=== PATIENT | female | born 1945 | race Caucasian/White ===

== ENCOUNTER → 2017-07-27 | Outpatient (CLI) | payer OTHER ==
[~2017-07-27] MED LIST: ACET325T96 PO; CHOLTAB3 PO; CITA40TA12 PO; DIPH25CA65 PO; LORA10TA5 PO; MULT-506 PO; NXM/40 PO; OMEG10007 PO; SIMV20TA2 PO; SYN25 PO
[2017-07-27 16:49] LABS: URINE APPEARANCE CLEAR (CLEAR); URINE BILIRUBIN NEG (NEG); URINE COLOR YELLOW; URINE EPITHELIAL CELL AUTO >30 /lpf (0-5); URINE NITRITE NEG (NEG); URINE PH 5.5 (4.5-7.5); URINE SPECIFIC GRAVITY 1.017 (1.000-1.030); UROBILINOGEN NEG (NEG)
[2017-07-27 16:49] LABS: BASO % 0.7 %; BASO ABS # 0.05 K/uL (0-0.2); COMPLETE YES; EOS % 6.1 %; IG% 0.1 %; LYMPH % 27.5 %; LYMPH ABS # 1.99 K/uL (1.2-3.4); MEAN CELL VOLUME 99.3 fL (80-100); MEAN CORPUSCULAR HGB CONC 34.3 g/dl (32-36); MEAN PLATELET VOLUME 12.2 fL (7.4-10.4); MONO % 7.1 %; NEUT % 58.5 %; PLATELET COUNT 221 K/uL (130-400); RED BLOOD COUNT 4.03 M/uL (4.2-5.4); WHITE BLOOD COUNT 7.23 K/uL (4.8-10.8)
[2017-07-27 16:56] LABS: MANUAL MICROSCOPIC REQUIRED? NO; REVIEW REQ? NO
[2017-07-27 16:59] LABS: ALT/SGPT 12 U/L (12-78); BLOOD UREA NITROGEN 17 mg/dl (7-18); CALCIUM 9.8 mg/dl (8.5-10.1); CARBON DIOXIDE 26 mmol/L (21-32); CHLORIDE 102 mmol/L (98-107); CHOLESTEROL 236 mg/dl (0-200); GLUCOSE 115 mg/dl (70-99); POTASSIUM 3.9 mmol/L (3.5-5.1); SODIUM 135 mmol/L (136-145)
[2017-07-27 17:08] LABS: ALKALINE PHOSPHATASE 105 U/L (45-117); AST/SGOT 24 U/L (15-37); CHOLESTEROL/HDL RATIO 4.9; HDL CHOLESTEROL 48 mg/dl; LDL CHOLESTEROL CALCULATED 160 mg/dl; TRIGLYCERIDES 140 mg/dl (0-150); VERY LOW DENSITY LIPOPROT CALC 28 mg/dl
[2017-07-27 17:26] LABS: LYME DISEASE AB IGG NEG (NEG); LYME DISEASE AB IGM NEG (NEG)
== END | disposition home or self-care (01) ==
LOC: C.LABBFT 12:00
PROVIDERS: ATTEND Physician Assistant Medical
DX: R41.3 Other amnesia (principal)

== ENCOUNTER → 2017-08-08 | Outpatient (CLI) | payer OTHER ==
[2017-08-08 17:37] LABS: URINE APPEARANCE CLEAR (CLEAR); URINE BILIRUBIN NEG (NEG); URINE COLOR YELLOW; URINE EPITHELIAL CELL AUTO >30 /lpf (0-5); URINE NITRITE NEG (NEG); URINE SPECIFIC GRAVITY 1.013 (1.000-1.030); UROBILINOGEN NEG (NEG)
[2017-08-08 17:54] LABS: MANUAL MICROSCOPIC REQUIRED? NO; REVIEW REQ? NO
== END | disposition home or self-care (01) ==
LOC: C.LABBFT 12:07
PROVIDERS: ATTEND Physician Assistant Medical
DX: N39.0 Urinary tract infection, site not specified (principal)

== ENCOUNTER → 2017-08-14 | Outpatient (CLI) | payer OTHER ==
--- NOTE | 2017-08-14 17:05 | DIAGNOSTIC IMAGING REPORT ---
MRI OF THE BRAIN WITHOUT CONTRAST CLINICAL HISTORY: MEMORY LOSS HEADACHES, DIZZINESS. COMPARISON STUDY: Noncontrast head CT dated 08/27/2015 FINDINGS: Sagittal T1, axial diffusion, proton density and T2 weighted axial, coronal FLAIR, and axial T1-weighted images were acquired. No intra or extra-axial mass lesions are visualized Axial diffusion-weighted images reveal no evidence of acute or subacute infarction. There is no evidence of ventricular dilatation. Proton density T2-weighted and FLAIR images reveal minimal foci of increased T2 signal within the white matter, likely on a small vessel basis. There are no abnormal flow voids. There are foci of increased T2 signal within the right mastoid, likely inflammatory. There is a partially empty sella. IMPRESSION: 1. Right mastoid effusion 2. No acute intracranial findings. Electronically signed by: Servando Eaton M.D. 08/14/2017 5:04 PM Dictated Date/Time: 08/14/2017 5:01 PM
--- NOTE | 2017-08-14 17:12 | DIAGNOSTIC IMAGING REPORT ---
ULTRASOUND OF THE CAROTID ARTERIES CLINICAL HISTORY: I25.10 Arteriosclerotic cardiovascular [id number] Memory lossI COMPARISON STUDY: 08/28/2015 TECHNIQUE: Real-time, grayscale, and color Doppler sonography of the carotid arteries was performed. Imaging reviewed in the transverse and longitudinal planes. NASCET criteria was utilized for stenosis calcification. FINDINGS: There is mild atherosclerotic plaque present . The peak systolic velocity within the right internal carotid artery is 63 cm/sec. The systolic velocity ratio of right internal to common carotid artery is 1.2. The peak systolic velocity within the left internal carotid artery is 63 cm/sec. The systolic velocity ratio left internal to common carotid artery is 1.0. Antegrade flow is seen in the vertebral arteries. The external carotid arteries are patent. Blood pressure in the right arm measured 198 mm/Hg. Blood pressure in the left arm measured 197 mm/Hg. IMPRESSION: 1. No evidence of hemodynamically significant carotid stenosis 2. Systemic hypertension Electronically signed by: Servando Eaton M.D. 08/14/2017 5:10 PM Dictated Date/Time: 08/14/2017 3:28 PM
== END | disposition home or self-care (01) ==
LOC: C.ULTR 14:04
PROVIDERS: ATTEND Internal Medicine
DX: R41.3 Other amnesia (principal); I25.10 Atherosclerotic heart disease of native coronary artery without angina pectoris; I65.29 Occlusion and stenosis of unspecified carotid artery

== ENCOUNTER → 2017-09-11 | Outpatient (CLI) | payer OTHER ==
[2017-09-11 18:11] LABS: BLOOD UREA NITROGEN 16 mg/dl (7-18); BUN/CREATININE RATIO 10.6 (10-20); CALCIUM 9.3 mg/dl (8.5-10.1); CARBON DIOXIDE 26 mmol/L (21-32); CHLORIDE 102 mmol/L (98-107); CREATININE 1.51 mg/dl (0.60-1.20); GLUCOSE 100 mg/dl (70-99); POTASSIUM 4.8 mmol/L (3.5-5.1); SODIUM 133 mmol/L (136-145)
[2017-09-12 06:38] LABS: ESTIMATED AVERAGE GLUCOSE 111 mg/dl; HA1C FLAG Normal (Normal)
== END | disposition home or self-care (01) ==
LOC: C.LABBFT 12:23
PROVIDERS: ATTEND Physician Assistant Medical
DX: I10 Essential (primary) hypertension (principal); R73.01 Impaired fasting glucose

== ENCOUNTER → 2017-12-18 | Outpatient (CLI) | payer OTHER ==
[~2017-12-18] MED LIST changes: +CEPH-571 PO; +LEVO50TA6 PO; -LORA10TA5 PO; +LORA10TA6 PO; +METO-217 PO; +PANT40TA2 PO
[2017-12-18 17:45] LABS: ALBUMIN 3.6 gm/dl (3.4-5.0); ALT/SGPT 20 U/L (12-78); BLOOD UREA NITROGEN 20 mg/dl (7-18); CALCIUM 9.3 mg/dl (8.5-10.1); CARBON DIOXIDE 25 mmol/L (21-32); CHOLESTEROL 180 mg/dl (0-200); GLUCOSE 100 mg/dl (70-99); POTASSIUM 4.8 mmol/L (3.5-5.1); SODIUM 135 mmol/L (136-145)
[2017-12-18 17:53] LABS: ALKALINE PHOSPHATASE 88 U/L (45-117); AST/SGOT 30 U/L (15-37); LDL CHOLESTEROL CALCULATED 109 mg/dl; TOTAL PROTEIN 7.5 gm/dl (6.4-8.2)
== END | disposition home or self-care (01) ==
LOC: C.LABBFT 13:23
PROVIDERS: ATTEND Physician Assistant Medical
DX: I10 Essential (primary) hypertension (principal); E03.9 Hypothyroidism, unspecified; E78.5 Hyperlipidemia, unspecified

== ENCOUNTER 2017-12-20 14:23 | Emergency (ER) | payer OTHER ==
[~2017-12-20] VITALS: Ht 170.2 cm; Wt 92.9 kg
[~2017-12-20 14:23] MED LIST changes: -CEPH-571 PO; -LEVO50TA6 PO; -METO-217 PO; -PANT40TA2 PO
[2017-12-20 14:36] VITALS: TEMP 36.4; Ht 170.2 cm; Wt 92.9 kg
[2017-12-20] MEDS ORDERED: PANT40TA2 PO (15:08)
[2017-12-20] MEDS ORDERED: LEVO50TA6 PO (15:08)
[2017-12-20] MEDS ORDERED: METO-217 PO (15:08)
--- NOTE | 2017-12-20 15:53 | EMERGENCY ROOM VISIT NOTE ---
History First contact with patient: 14:44 Chief Complaint: SYNCOPE Stated Complaint: SYNCOPE Nursing Triage Summary: pt had a syncopal event at 1400 at the local [facility] second one at [facility] pt has no complaints at this time History of Present Illness The patient is a 72 year old female with history of CAD, HTN on Metoprolol, hypothyroidism, who presents to the Emergency Room with complaints of syncopal episode. She reports walking down the aisle in [facility] approximately 30-45 minutes prior to arrival, she felt sensation of dizziness, lightheadedness and reports brief loss of consciousness. She denies falling because her family caught her and prevented fall. She denies preceding chest pain, sob, fevers, chills, n/v, diarrhea, abdominal pain. She reports she had similar syncopal episode in Aug 2015 after walking around in [facility]. She was admitted, symptoms were attributed to orthostatic hypotension. Etiology was unclear. She was placed on Florinef at discharge. She is no longer on this medication. Review of Systems Pt denies headache, change in vision, fevers, chest pain, shortness of breath, nausea, vomiting, diarrhea, pain with urination, and melena. Past Medical/Surgical History Medical Problems: (1) CORONARY ATHEROSCLEROSIS OF [place] CORONARY VESSEL (2) DIVERTICULOSIS COLON (W/O MENT OF HEMORRHAGE) (3) HYPERLIPIDEMIA NEC/NOS (4) HYPERTENSION NOS (5) MIGRAINE UNSPECIFIED W/O INTRACTABLE MIGRAINE (6) SPINAL STENOSIS-LUMBAR Family History Cardiovascular disease FH: cancer FH: heart disease Social History Smoking Status: Never Smoker Alcohol Use: none Marital Status: Occupation Status: employed Current/Historical Medications Scheduled Cephalexin (Keflex), 1 CAP PO BID Esomeprazole Magnesium (Nexium), 40 MG PO DAILY Fish Oil ([place]-3), 1 CAP PO 1-2XD Levothyroxine Sodium (Levothyroxine Sodium), 50 MCG PO QAM Metoprolol Succinate (Toprol Xl), 50 MG PO QAM Multivitamin (Multivitamin), 1 TAB PO DAILY Pantoprazole (Pantoprazole Sodium), 40 MG PO DAILY Simvastatin (Zocor), 20 MG PO DAILY Scheduled PRN Acetaminophen Tab (Tylenol), 325 MG PO for Pain Physical Exam Vital Signs Date Time Temp Pulse Resp B/P (MAP) Pulse Ox O2 Delivery O2 Flow Rate FiO2 12/20/17 18:45 68 16 99 12/20/17 16:46 63 18 168/85 99 Room Air 12/20/17 16:33 63 16 168/85 99 Room Air 75 147/76 76 139/80 12/20/17 15:19 62 16 137/74 98 Room Air 12/20/17 15:00 60 12/20/17 14:36 36.4 67 18 166/85 98 Room Air Physical Exam GENERAL: alert, no distress, EYE EXAM: normal conjunctiva, PERRL and EOM's grossly intact OROPHARYNX: no exudate, no erythema, lips, buccal mucosa, and tongue normal and mucous membranes are moist NECK: supple, no adenopathy, non-tender LUNGS: Clear to auscultation. Normal chest wall mechanics HEART: no murmurs, S1 normal and S2 normal ABDOMEN: abdomen soft, non-tender, normo-active bowel sounds, no masses, no rebound or guarding. BACK: Back is symmetrical on inspection and there is no deformity UPPER EXTREMITIES: upper extremities are grossly normal. LOWER EXTREMITIES: No pitting edema. NEURO EXAM: AOx3, cranial nerves II-XII intact, normal speech, no gross weakness of arms, no gross weakness of legs. Medical Decision & Procedures Laboratory Results 12/20/17 15:35 Red Blood Count 3.87, Mean Corpuscular Volume 97.9, Mean Corpuscular Hemoglobin 33.9, Mean Corpuscular Hemoglobin Concent 34.6, Mean Platelet Volume 11.2, Neutrophils (%) (Auto) 69.0, Lymphocytes (%) (Auto) 17.7, Monocytes (%) (Auto) 6.8, Eosinophils (%) (Auto) 5.9, Basophils (%) (Auto) 0.4, Neutrophils # (Auto) 3.87, Lymphocytes # (Auto) 0.99, Monocytes # (Auto) 0.38, Eosinophils # (Auto) 0.33, Basophils # (Auto) 0.02 12/20/17 15:35 Test 12/20/17 15:33 12/20/17 15:35 12/20/17 18:05 12/20/17 18:15 Free Thyroxine 1.49 ng/dl (0.80-1.60) White Blood Count 5.60 K/uL (4.8-10.8) Red Blood Count 3.87 M/uL (4.2-5.4) Hemoglobin 13.1 g/dL (12.0-16.0) Hematocrit 37.9 % (37-47) Mean Corpuscular Volume 97.9 fL (80-100) Mean Corpuscular Hemoglobin 33.9 pg (25-34) Mean Corpuscular Hemoglobin Concent 34.6 g/dl (32-36) Platelet Count 153 K/uL (130-400) Mean Platelet Volume 11.2 fL (7.4-10.4) Neutrophils (%) (Auto) 69.0 % Lymphocytes (%) (Auto) 17.7 % Monocytes (%) (Auto) 6.8 % Eosinophils (%) (Auto) 5.9 % Basophils (%) (Auto) 0.4 % Neutrophils # (Auto) 3.87 K/uL (1.4-6.5) Lymphocytes # (Auto) 0.99 K/uL (1.2-3.4) Monocytes # (Auto) 0.38 K/uL (0.11-0.59) Eosinophils # (Auto) 0.33 K/uL (0-0.5) Basophils # (Auto) 0.02 K/uL (0-0.2) RDW Standard Deviation 44.1 fL (36.4-46.3) RDW Coefficient of Variation 12.4 % (11.5-14.5) Immature Granulocyte % (Auto) 0.2 % Immature Granulocyte # (Auto) 0.01 K/uL (0.00-0.02) Anion Gap 8.0 mmol/L (3-11) Est Creatinine Clear Calc Drug Dose 37.0 ml/min Estimated GFR () 37.5 Estimated GFR (Non- 32.4 BUN/Creatinine Ratio 11.5 (10-20) Calcium Level 9.2 mg/dl (8.5-10.1) Magnesium Level 2.1 mg/dl (1.8-2.4) Total Bilirubin 0.5 mg/dl (0.2-1) Aspartate Amino Transf (AST/SGOT) 26 U/L (15-37) Alanine Aminotransferase (ALT/SGPT) 19 U/L (12-78) Alkaline Phosphatase 85 U/L (45-117) Troponin I < 0.015 ng/ml (0-0.045) Total Protein 7.1 gm/dl (6.4-8.2) Albumin 3.3 gm/dl (3.4-5.0) Globulin 3.8 gm/dl (2.5-4.0) Albumin/Globulin Ratio 0.9 (0.9-2) Thyroid Stimulating Hormone (TSH) 20.400 uIu/ml (0.300-4.500) Free Triiodothyronine 2.24 pg/ml (2.30-4.20) Urine Color YELLOW Urine Appearance CLOUDY (CLEAR) Urine pH 5.5 (4.5-7.5) Urine Specific [place] 1.011 (1.000-1.030) Urine Protein NEG (NEG) Urine Glucose (UA) NEG (NEG) Urine Ketones NEG (NEG) Urine Occult Blood NEG (NEG) Urine Nitrite POS (NEG) Urine Bilirubin NEG (NEG) Urine Urobilinogen NEG (NEG) Urine Leukocyte Esterase SMALL (NEG) Urine WBC (Auto) 10-30 /hpf (0-5) Urine RBC (Auto) 0-4 /hpf (0-4) Urine Hyaline Casts (Auto) 1-5 /lpf (0-5) Urine Epithelial Cells (Auto) >30 /lpf (0-5) Urine Bacteria (Auto) 2+ (NEG) Influenza Type A Antigen Neg for Influ A (NEG) Influenza Type B Antigen Neg for Influ B (NEG) Medications Administered Medications (Trade) Dose Ordered Sig/Alessio Route Start Time Stop Time Status Last Admin Dose Admin Sodium Chloride 1,000 ml @ 999 mls/hr Q1H1M IV 12/20/17 19:15 01/19/18 19:14 12/20/17 19:10 999 MLS/HR Medical Decision 72 year old female with history of Orthostatic hypotension, CAD, HTN on Metoprolol, previous syncopal episode in 2014 presenting with syncopal episode. Vital signs positive for Orthostasis CBC: unremarkable CMP: Cr 1.56 from ( Baseline 1.5- 1.9) Otherwise unremarkable TSH: 20.4 ( up from .075 in 03/02) Free T3: 2.24 Free T4 1.49 UA: Nitrite positive, Trace leukocyte esterase, 2+ bacteria CXR: unremarkable Given 1L NS Bolus Given 500 mg PO Keflex Given history of Orthostatic Hypotension and previous syncopal episode, in addition to positive orthostatic vitals signs on this encounter, syncopal episode very likely secondary to this. Additionally given UA consistent with UTI, dehydration in the setting of UTI may have been a significant contributor. Upon reevaluation, the patient is asymptomatic, comfortable. I discussed the findings and the treatment plan with the patient. Patient and family expresses agreement and understanding. She was discharged on 1 week of Keflex 500 mg BID with follow up to PCP and scheduled appt with Dr. Toledo (Neurology). Impression Primary Impression: Syncope Additional Impression: UTI (urinary tract infection) Departure Information Dispostion Home / Self-Care Condition GOOD Prescriptions Cephalexin (KEFLEX) 500 Mg Cap 1 CAP PO BID for 7 Days, #14 CAP Prov: Michael Hemphill .MD 12/20/17 Referrals Jose Angel Montes De Oca M.D. (PCP) Patient Instructions ED UTI Cystitis Female, [facility] Additional Instructions You presented to Emergency Department with a syncopal episode and were found to have a Urinary Tract infection. You will be placed on an antibiotic ( Keflex) for 7 days. Please take as prescribed. Please maintain hydration because dehydration can be contributor your syncope. If you experience increasing pain with urination, blood in urine, back or side pain please call your clinic doctor or if concerned , return to Emergency Dept. If you have recurrent syncopal episodes, Chest pain, please return to Emergency Dept. Please follow up with Primary care doctor within 1 week. Please follow up with Dr. Toledo. Resident Tracking Resident Involvement: Resident Care Provided Care Provided: Adult ED Problem Qualifiers
[2017-12-20 16:01] LABS: BASO % 0.4 %; BASO ABS # 0.02 K/uL (0-0.2); EOS % 5.9 %; EOS ABS # 0.33 K/uL (0-0.5); HEMATOCRIT 37.9 % (37-47); HEMOGLOBIN 13.1 g/dL (12.0-16.0); IG# 0.01 K/uL (0.00-0.02); LYMPH % 17.7 %; LYMPH ABS # 0.99 K/uL (1.2-3.4); MEAN CELL VOLUME 97.9 fL (80-100); MEAN CORPUSCULAR HEMOGLOBIN 33.9 pg (25-34); MEAN CORPUSCULAR HGB CONC 34.6 g/dl (32-36); MEAN PLATELET VOLUME 11.2 fL (7.4-10.4); MONO % 6.8 %; MONO ABS # 0.38 K/uL (0.11-0.59); NEUT ABS # 3.87 K/uL (1.4-6.5); PLATELET COUNT 153 K/uL (130-400); RED CELL DISTRIBUTION WIDTH CV 12.4 % (11.5-14.5); RED CELL DISTRIBUTION WIDTH SD 44.1 fL (36.4-46.3)
[2017-12-20 16:26] LABS: ALBUMIN 3.3 gm/dl (3.4-5.0); CALCIUM 9.2 mg/dl (8.5-10.1); CREATININE 1.56 mg/dl (0.60-1.20); POTASSIUM 4.4 mmol/L (3.5-5.1)
[2017-12-20 16:29] LABS: TOTAL PROTEIN 7.1 gm/dl (6.4-8.2)
--- NOTE | 2017-12-20 16:55 | DIAGNOSTIC IMAGING REPORT ---
CHEST 2 VIEWS ROUTINE CLINICAL HISTORY: Syncope. COMPARISON STUDY: Chest radiograph September 06, 2015. FINDINGS: Cervical spine fusion is incidentally noted. Lung volumes are normal. There is no pneumothorax or pleural effusion. There is no evidence for pulmonary edema. There is no consolidation to suggest pneumonia. Cardiomediastinal silhouette is stable. IMPRESSION: No acute cardiopulmonary findings. No change in appearance of the chest. Electronically signed by: Charly Seth M.D. 12/20/2017 4:53 PM Dictated Date/Time: 12/20/2017 4:52 PM
--- NOTE | 2017-12-20 17:29 | EMERGENCY ROOM VISIT NOTE ---
History Report prepared by Elva: Anish Frost Under the Supervision of: Dr. Tonio Charles M.D. First contact with patient: 14:44 Chief Complaint: SYNCOPE Stated Complaint: SYNCOPE Nursing Triage Summary: pt had a syncopal event at 1400 at the local [facility] second one at [facility] pt has no complaints at this time History of Present Illness The patient is a 72 year old female who presents to the Emergency Room following a syncopal episode that occurred just prior to arrival. The patient states that she was pushing her shopping cart through [place] with her son today when she became dizzy, light headed, and warm. She expressed these symptoms to her son, and then sat down on the corner of an "island display" in a shopping isle. The son notes that he told her to lift her arms up so he could help her take off her jacket, she did not respond and kept her head down. The son notes that she then went unconscious and slid to the floor. He helped her to the floor from the seated position and she did not impact the ground in anyway. The son notes that she was unconscious for about 5 minutes and she did lose continence of her bladder. The patient notes that when she woke up she was completely aware of her surroundings. There was no post ictal confusion. She denies any chest pain, shortness of breath, palpitations, or weakness preceding the episode. She did have one episode od diarrhea yesterday, but she is sure that this was the result of eating a jar of pears. The patient did have a similar incident in 2015 and was diagnosed with Orthostatic Hypertension. Source of History: patient, family Onset: Shortly REFLEXOLOGIST Position: other (Neuro) Quality: other (Syncopal Episode) Associated Symptoms: + LOC, No chest pain, No SOB Review of Systems See HPI for pertinent positives and negatives. A total of ten systems were reviewed and were otherwise negative. Past Medical & Surgical Medical Problems: (1) CORONARY ATHEROSCLEROSIS OF [place] CORONARY VESSEL (2) DIVERTICULOSIS COLON (W/O MENT OF HEMORRHAGE) (3) HYPERLIPIDEMIA NEC/NOS (4) HYPERTENSION NOS (5) MIGRAINE UNSPECIFIED W/O INTRACTABLE MIGRAINE (6) SPINAL STENOSIS-LUMBAR Family History Cardiovascular disease FH: cancer FH: heart disease Social History Smoking Status: Never Smoker Alcohol Use: none Marital Status: Occupation Status: employed Current/Historical Medications Scheduled Cephalexin (Keflex), 1 CAP PO BID Esomeprazole Magnesium (Nexium), 40 MG PO DAILY Fish Oil ([place]-3), 1 CAP PO 1-2XD Levothyroxine Sodium (Levothyroxine Sodium), 50 MCG PO QAM Metoprolol Succinate (Toprol Xl), 50 MG PO QAM Multivitamin (Multivitamin), 1 TAB PO DAILY Pantoprazole (Pantoprazole Sodium), 40 MG PO DAILY Simvastatin (Zocor), 20 MG PO DAILY Scheduled PRN Acetaminophen Tab (Tylenol), 325 MG PO for Pain Allergies Coded Allergies: Furosemide (Verified Allergy, Severe, ICHING, BODY PAIN, 12/20/17) Potassium (Verified Allergy, Mild, BLACKS OUT, 12/20/17) Resveratrol (Verified Allergy, Mild, PASSES OUT, 08/27/15) Camphor (Verified Allergy, Unknown, Muscle weakness and spacing of words with speech., 08/27/15) Celecoxib (Verified Allergy, Unknown, 08/27/15) Rofecoxib (Verified Allergy, Unknown, 08/27/15) Sulfa Antibiotics (Verified Allergy, Unknown, UNKNOWN, 12/20/17) Venlafaxine (Verified Allergy, Unknown, 12/20/17) Uncoded Allergies: RESVINATROL COMPLETE (Allergy, Unknown, Swelling throat/tongue.Difficulty breathing.Spacing of words, 08/01/11) Physical Exam Vital Signs Date Time Temp Pulse Resp B/P (MAP) Pulse Ox O2 Delivery O2 Flow Rate FiO2 12/20/17 20:11 64 19 172/90 99 12/20/17 18:45 68 16 99 12/20/17 16:46 63 18 168/85 99 Room Air 12/20/17 16:33 63 16 168/85 99 Room Air 75 147/76 76 139/80 12/20/17 15:19 62 16 137/74 98 Room Air 12/20/17 15:00 60 12/20/17 14:36 36.4 67 18 166/85 98 Room Air Physical Exam GENERAL: Awake, alert, fatigued-appearing, in no distress HENT: Normocephalic, atraumatic. Patient has dry and cracked mucous membranes. EYES: Normal conjunctiva. Sclera non-icteric. NECK: Supple. No nuchal rigidity. FROM. No JVD. RESPIRATORY: Clear to auscultation. CARDIAC: Regular rate, normal rhythm. Extremities warm and well perfused. Pulses equal. ABDOMEN: Soft, non-distended. No tenderness to palpation. No rebound or guarding. No masses. RECTAL: Deferred. MUSCULOSKELETAL: Chest examination reveals no tenderness. The back is symmetrical on inspection without obvious abnormality. There is no CVA tenderness to palpation. No joint edema. LOWER EXTREMITIES: Calves are equal size bilaterally and non-tender. 1+ lower extremity edema. No discoloration. NEURO: Normal sensorium. No sensory or motor deficits noted. SKIN: No rash or jaundice noted. Medical Decision & Procedures ER Provider Diagnostic Interpretation: Radiology results as stated below per my review and radiologist interpretation: CHEST 2 VIEWS ROUTINE CLINICAL HISTORY: Syncope. COMPARISON STUDY: Chest radiograph September 06, 2015. FINDINGS: Cervical spine fusion is incidentally noted. Lung volumes are normal. There is no pneumothorax or pleural effusion. There is no evidence for pulmonary edema. There is no consolidation to suggest pneumonia. Cardiomediastinal silhouette is stable. IMPRESSION: No acute cardiopulmonary findings. No change in appearance of the chest. Electronically signed by: Charly Seth M.D. 12/20/2017 4:53 PM Dictated Date/Time: 12/20/2017 4:52 PM Laboratory Results 12/20/17 15:35 Red Blood Count 3.87, Mean Corpuscular Volume 97.9, Mean Corpuscular Hemoglobin 33.9, Mean Corpuscular Hemoglobin Concent 34.6, Mean Platelet Volume 11.2, Neutrophils (%) (Auto) 69.0, Lymphocytes (%) (Auto) 17.7, Monocytes (%) (Auto) 6.8, Eosinophils (%) (Auto) 5.9, Basophils (%) (Auto) 0.4, Neutrophils # (Auto) 3.87, Lymphocytes # (Auto) 0.99, Monocytes # (Auto) 0.38, Eosinophils # (Auto) 0.33, Basophils # (Auto) 0.02 12/20/17 15:35 Test 12/20/17 15:33 12/20/17 15:35 12/20/17 18:05 12/20/17 18:15 Free Thyroxine 1.49 ng/dl (0.80-1.60) White Blood Count 5.60 K/uL (4.8-10.8) Red Blood Count 3.87 M/uL (4.2-5.4) Hemoglobin 13.1 g/dL (12.0-16.0) Hematocrit 37.9 % (37-47) Mean Corpuscular Volume 97.9 fL (80-100) Mean Corpuscular Hemoglobin 33.9 pg (25-34) Mean Corpuscular Hemoglobin Concent 34.6 g/dl (32-36) Platelet Count 153 K/uL (130-400) Mean Platelet Volume 11.2 fL (7.4-10.4) Neutrophils (%) (Auto) 69.0 % Lymphocytes (%) (Auto) 17.7 % Monocytes (%) (Auto) 6.8 % Eosinophils (%) (Auto) 5.9 % Basophils (%) (Auto) 0.4 % Neutrophils # (Auto) 3.87 K/uL (1.4-6.5) Lymphocytes # (Auto) 0.99 K/uL (1.2-3.4) Monocytes # (Auto) 0.38 K/uL (0.11-0.59) Eosinophils # (Auto) 0.33 K/uL (0-0.5) Basophils # (Auto) 0.02 K/uL (0-0.2) RDW Standard Deviation 44.1 fL (36.4-46.3) RDW Coefficient of Variation 12.4 % (11.5-14.5) Immature Granulocyte % (Auto) 0.2 % Immature Granulocyte # (Auto) 0.01 K/uL (0.00-0.02) Anion Gap 8.0 mmol/L (3-11) Est Creatinine Clear Calc Drug Dose 37.0 ml/min Estimated GFR () 37.5 Estimated GFR (Non- 32.4 BUN/Creatinine Ratio 11.5 (10-20) Calcium Level 9.2 mg/dl (8.5-10.1) Magnesium Level 2.1 mg/dl (1.8-2.4) Total Bilirubin 0.5 mg/dl (0.2-1) Aspartate Amino Transf (AST/SGOT) 26 U/L (15-37) Alanine Aminotransferase (ALT/SGPT) 19 U/L (12-78) Alkaline Phosphatase 85 U/L (45-117) Troponin I < 0.015 ng/ml (0-0.045) Total Protein 7.1 gm/dl (6.4-8.2) Albumin 3.3 gm/dl (3.4-5.0) Globulin 3.8 gm/dl (2.5-4.0) Albumin/Globulin Ratio 0.9 (0.9-2) Thyroid Stimulating Hormone (TSH) 20.400 uIu/ml (0.300-4.500) Free Triiodothyronine 2.24 pg/ml (2.30-4.20) Urine Color YELLOW Urine Appearance CLOUDY (CLEAR) Urine pH 5.5 (4.5-7.5) Urine Specific [place] 1.011 (1.000-1.030) Urine Protein NEG (NEG) Urine Glucose (UA) NEG (NEG) Urine Ketones NEG (NEG) Urine Occult Blood NEG (NEG) Urine Nitrite POS (NEG) Urine Bilirubin NEG (NEG) Urine Urobilinogen NEG (NEG) Urine Leukocyte Esterase SMALL (NEG) Urine WBC (Auto) 10-30 /hpf (0-5) Urine RBC (Auto) 0-4 /hpf (0-4) Urine Hyaline Casts (Auto) 1-5 /lpf (0-5) Urine Epithelial Cells (Auto) >30 /lpf (0-5) Urine Bacteria (Auto) 2+ (NEG) Influenza Type A Antigen Neg for Influ A (NEG) Influenza Type B Antigen Neg for Influ B (NEG) Laboratory results reviewed by me Medications Administered Medications (Trade) Dose Ordered Sig/Alessio Route Start Time Stop Time Status Last Admin Dose Admin Sodium Chloride 1,000 ml @ 999 mls/hr Q1H1M IV 12/20/17 19:15 12/20/17 20:35 DC 12/20/17 19:10 999 MLS/HR Cephalexin Monohydrate (Keflex Cap) 500 mg NOW ONCE PO 12/20/17 19:30 12/20/17 19:31 DC 12/20/17 19:30 500 MG ECG Indication: syncope Rate (beats per minute): 62 Findings: no acute ischemic change, other (Normal [place]) Comparison ECG Date: 08/30/2015 Change: no significant change ED Course 1521: The patient was evaluated by the medical transcription supervisor at this time. 1718: The patient was evaluated in room B7. A complete history and physical exam was performed. 1915: Ordered Sodium Chloride 1000 mL @ 999 mL/hr IV. 1930: Ordered Keflex Cap 500 mg PO. 1948: I reevaluated the patient. Discussed results and discharge instructions with the patient's parents. They verbalized understanding and agreement. The patient is ready for discharge. Medical Decision I reviewed the patient's past medical history, medications, and the nursing notes as described above. Differential diagnosis: Etiologies such as vasovagal event, infection, hypoglycemia, electrolyte abnormalities, cardiac sources, intracerebral event, toxicologic, neurologic, as well as others were entertained. The patient is a 72-year-old woman who presents emergency Department with syncopal episode when she was walking in [facility] with her son per hpi. Arrival the patient is fatigued appearing but in no acute distress, afebrile with stable vital signs. Of note, the patient reports mild diarrhea yesterday She appears clinically dry. Patient was admitted for a similar episode in July where she had an unremarkable workup including MRI of the brain and carotid ultrasounds. EKG unremarkable. Troponin negative. Creatinine at baseline. WBC wnl. Chest x-ray negative. +orthostatics. Thus episode most likely related to mild dehydration in the setting of the patient's diarrhea. UA positive for UTI which also likely contributes to mild dehydration. Patient feeling improved after IV fluids. Of note, patient also recently had tilt table testing as part of her recent admission follow-up and she has a visit scheduled with neurology coming up to review these findings. Findings and plan for follow- up reviewed with patient. Patient agreeable and d/c'd per discharge instructions. I discussed the case with the resident physician, examined the patient, and agree with the findings and plan as documented in the residents note unless otherwise clarified here by me. Impression Primary Impression: Orthostatic syncope Additional Impressions: UTI (urinary tract infection) Dehydration Scribe Attestation The scribe's documentation has been prepared under my direction and personally reviewed by me in its entirety. I confirm that the note above accurately reflects all work, treatment, procedures, and medical decision making performed by me. Departure Information Dispostion Home / Self-Care Prescriptions Cephalexin (KEFLEX) 500 Mg Cap 1 CAP PO BID for 7 Days, #14 CAP Prov: Michael Hemphill .MD 12/20/17 Referrals Jose Angel Montes De Oca M.D. (PCP) Patient Instructions [facility] Problem Qualifiers
[2017-12-20 19:03] LABS: INFLUENZA B ANTIGEN Neg for Influ B (NEG)
[2017-12-20] MEDS ORDERED: SODIUM CHLORIDE 0.9% 1000ML 1,000 ML IV SCH (19:15)
[2017-12-20] MEDS ORDERED: CEPHALEXIN MONOHYDRATE 250 MG CAP PO ONE (19:30)
[2017-12-20] MEDS ORDERED: CEPH-571 PO (19:51)
[2017-12-20 20:11] VITALS: BP 172/90; PULSE 64; O2SAT 99
== END 2017-12-20 20:12 | disposition home or self-care (01) ==
LOC: EDBD 14:23 → C.EDB 14:24
DX: I95.1 Orthostatic hypotension (principal); N39.0 Urinary tract infection, site not specified; E86.0 Dehydration; I25.10 Atherosclerotic heart disease of native coronary artery without angina pectoris; I10 Essential (primary) hypertension; E03.9 Hypothyroidism, unspecified; E78.5 Hyperlipidemia, unspecified; Z79.899 Other long term (current) drug therapy

== ENCOUNTER → 2017-12-31 | Outpatient (CLI) | payer OTHER ==
[~2017-12-31] MED LIST changes: +ACET-1693 PO; -ACET325T96 PO; -CHOLTAB3 PO; -CITA40TA12 PO; -DIPH25CA65 PO; +LEVO50TA6 PO; -LORA10TA6 PO; +METO-217 PO; +PANT40TA2 PO; -SYN25 PO
[2017-12-31 18:00] LABS: BLOOD UREA NITROGEN 34 mg/dl (7-18); CALCIUM 9.5 mg/dl (8.5-10.1); CARBON DIOXIDE 22 mmol/L (21-32); CREATININE 1.64 mg/dl (0.60-1.20); GLUCOSE 111 mg/dl (70-99); POTASSIUM 4.4 mmol/L (3.5-5.1); SODIUM 134 mmol/L (136-145)
== END | disposition home or self-care (01) ==
LOC: C.LABBFT 13:31
PROVIDERS: ATTEND Nurse Practitioner
DX: E86.0 Dehydration (principal)

== ENCOUNTER → 2018-04-01 | Outpatient (CLI) | payer OTHER ==
[2018-04-01 17:41] LABS: ALBUMIN 3.6 gm/dl (3.4-5.0); ALT/SGPT 68 U/L (12-78); AST/SGOT 99 U/L (15-37); BLOOD UREA NITROGEN 30 mg/dl (7-18); CARBON DIOXIDE 24 mmol/L (21-32); CREATININE 1.68 mg/dl (0.60-1.20); GLUCOSE 106 mg/dl (70-99); POTASSIUM 4.6 mmol/L (3.5-5.1); SODIUM 135 mmol/L (136-145)
[2018-04-01 17:52] LABS: ALKALINE PHOSPHATASE 125 U/L (45-117); TOTAL PROTEIN 7.7 gm/dl (6.4-8.2)
== END | disposition home or self-care (01) ==
LOC: C.LABBFT 12:28
PROVIDERS: ATTEND Physician Assistant
DX: E03.9 Hypothyroidism, unspecified (principal); F03.90 Unspecified dementia, unspecified severity, without behavioral disturbance, psychotic disturbance, mood disturbance, and anxiety

== ENCOUNTER 2021-03-14 21:53 | Inpatient (IN) ==
--- NOTE | 2021-03-14 21:55 | Emergency Department Note ---
Impression & Plan Syncope, Acute UTI, Hypocalcemia, Hypophosphatemia ED Provider Note NAME: REYNALDO JUDGE AGE: 75 SEX: F : 1945 ARRIVES VIA: Ambulance INFORMANT: Patient, ED PROVIDER(S): Praveen Ronquillo MD Chief Complaint: Syncope HPI: Patient does present from home due to concern for syncope. This apparently occurred just prior to arrival. Patient reportedly had syncopized on the couch was unresponsive for approximately 1 minute in duration. Sternal rub did awaken the patient. BSG was normal. No reported trauma and the patient did not fall from the couch. The patient is currently asymptomatic at baseline. Patient does have a known history of dementia. The patient currently denies any headache chest pain neck pain, nausea, vomiting, fevers or chills. The patient states that her appetite has been good. The patient's power of estate attorney is her daughter who is to arrive shortly. ROS: See HPI for pertinent positives and negatives. A total of 10 systems were reviewed and otherwise negative albeit may be limited due to the patient's history of dementia. Past medical history: See below Surgical history: See below Social history: See below Physical Exam: GENERAL: Wearing a mask. NAD, non-toxic. EYE EXAM: Normal conjunctiva. PERRL, no anisocoria and EOM's grossly intact w/o pain. NECK: Supple, no nuchal rigidity, no adenopathy, non-tender. No signs of meningismus. LUNGS: Clear to auscultation. Normal chest wall mechanics. HEART: NSR, no MRG. ABDOMEN: Abdomen soft, non-tender, normo-active bowel sounds, no masses, no rebound or guarding. BACK: No CVA TTP. SKIN: Dry skin noted. Scant bruising noted over the upper extremities UPPER EXTREMITIES: Upper extremities are grossly normal. LOWER EXTREMITIES: Grossly normal, no edema. NEURO EXAM: Awake and alert, follows basic commands, cranial nerves II-XII grossly intact, normal speech, moves all 4 extremities on command w/o issue. No sensory deficits. Differential diagnoses: Vasovagal event, dehydration, infection, hypoglycemia, electrolyte abnormalities, cardiac sources, intracerebral event, pulmonary embolism, seizure, toxicologic, neurologic, as well as other pathologies. Course: Patient was seen and evaluated the bedside. Full history physical exam was performed. EKG: Indication: Syncope Normal sinus rhythm, rate of 63, normal WA and QRS, borderline QTC, normal axis, slight ST depression in [address] changes appear to be old from comparison EKG completed February 27, 2020 Imaging Studies: 1 view chest x-ray No obvious pneumonia, pneumothorax or pleural effusion. Grossly unchanged from comparison chest x-ray from February 2020 Cardiac monitoring: An order was placed for continuous cardiac monitoring. The monitor shows a rate of 62 with sinus rhythm. MDM: Patient did present with an episode of syncope. Patient does have a history of dementia but has no focal neurologic deficits good range of motion bilateral upper and lower extremities. Speech is clear. Patient does not have any acute complaints at this time. Blood work is obtained along with an EKG troponin chest x-ray. Chest x-ray with no obvious acute changes compared to prior. Urinalysis test to show infection. Calcium 11 ordered for repleted. White count is normal. Hemoglobin virtually normal at 11.7. Platelet count is unremarkable. Did speak with the patient's daughter stated that she lost control of her bowel or bladder on the couch they got up to use the toilet when she had an episode of syncope. No shaking and no history of seizure. Patient is DNR/DNI. I did speak to the on-call hospitalist Dr. Rubio and the patient was admitted to the medicine service. Past Med/Surg History Medical History (Updated 03/15/21 @ 03:53 by Lalito Nickerson MD) Dementia Hypertension Hypothyroidism (acquired) Surgical History History of back surgery History of cataract surgery History of colonoscopy History of esophagogastroduodenoscopy (EGD) History of laparoscopic cholecystectomy History of total abdominal hysterectomy and bilateral salpingo-oophorectomy Family History Unknown Factor V Leiden mutation Father Coronary heart disease Myocardial infarction Mother Coronary heart disease Social History Smoking Status: Never smoker Second Hand Exposure: No; Do You Dip or Chew Tobacco: No; Tobacco Cessation Education Requested by Patient: No Hx Alcohol Use: No Hx Substance Use: No Preferred Language: [place] Communication Ability: Impaired Scaffold Builder Required: No Beliefs That Will Affect Care: None marital status: / Current Living Situation: Family Feels Safe at Home: Yes Safety Concerns: Feels Safe At This Time Assistive Devices: Walker Assistive Devices Comment: pt states she has a walker at home but does not walk Allergies Allergies Allergy/AdvReac Type Severity Reaction Status Date / Time camphor Allergy Severe Anaphylaxis Verified 03/14/21 23:16 furosemide Allergy Severe ICHING, Verified 03/14/21 23:16 BODY PAIN potassium Allergy Intermediate BLACKS OUT Verified 03/14/21 23:16 resveratrol Allergy Intermediate PASSES OUT Verified 03/14/21 23:16 Sulfa (Sulfonamide Allergy Intermediate Hives Verified 03/14/21 23:16 Antibiotics) celecoxib Allergy Unknown CAN'T Verified 03/14/21 23:16 REMEMBER rofecoxib Allergy Unknown CAN'T Verified 03/14/21 23:16 REMEMBER venlafaxine Allergy Unknown CAN'T Verified 03/14/21 23:16 REMEMBER ibuprofen [From Advil] AdvReac Unknown CAN'T Verified 03/14/21 23:16 REMEMBER RESVINATROL COMPLETE Allergy Severe Swelling Uncoded 03/14/21 23:16 throat/tongue.Difficulty breathing.Spacing of words Home Meds Home Medications Medication Instructions Recorded Confirmed acetaminophen [Tylenol Extra 500 mg PO Q6H PRN 03/14/21 03/14/21 Strength] Previous Rx's Medication Instructions Recorded levothyroxine 125 mcg tablet 125 mcg PO DAILY #90 tab 06/10/20 metoprolol succinate 50 mg 50 mg PO DAILY #90 tab 06/10/20 tablet,extended release 24 hr Results & Data (ED) Vital Signs Vital Signs - 24 hr 03/14/21 21:58 03/14/21 22:03 03/14/21 22:08 Temperature 36.7 C Temperature Source Oral Pulse Rate Pulse Rate [Apical] 62 Pulse Rate from SpO2 Sensor Pulse Rhythm Pulse Rhythm [Apical] Regular Pulse Strength [Apical] Normal Respiratory Rate 18 Respiratory Effort / Characteristics Non-Labored Respiratory Depth Normal Blood Pressure Blood Pressure [Left Arm] 117/71 Blood Pressure Mean Blood Pressure Mean [Left Arm] 86 Blood Pressure Position [Left Arm] Lying Pulse Oximetry 99 Oxygen Delivery Method Room Air Room Air Sepsis Recent Fever Within 48 Hours No Sepsis New/Unexplained Change in Mental Status No Sepsis Action Taken by Nursing No Action Required 03/14/21 22:15 03/14/21 22:23 03/14/21 23:00 Temperature Temperature Source Pulse Rate 57 L 57 L Pulse Rate [Apical] Pulse Rate from SpO2 Sensor 57 L 62 57 L Pulse Rhythm Regular Pulse Rhythm [Apical] Pulse Strength [Apical] Respiratory Rate 20 20 Respiratory Effort / Characteristics Respiratory Depth Blood Pressure 103/60 132/58 L Blood Pressure [Left Arm] Blood Pressure Mean 74 82 Blood Pressure Mean [Left Arm] Blood Pressure Position [Left Arm] Pulse Oximetry 97 97 98 Oxygen Delivery Method Room Air Room Air Sepsis Recent Fever Within 48 Hours Sepsis New/Unexplained Change in Mental Status Sepsis Action Taken by Nursing 03/14/21 23:01 03/14/21 23:15 03/14/21 23:20 Temperature Temperature Source Pulse Rate 56 L 56 L 58 L Pulse Rate [Apical] Pulse Rate from SpO2 Sensor 56 L 56 L 60 Pulse Rhythm Pulse Rhythm [Apical] Pulse Strength [Apical] Respiratory Rate 18 20 15 Respiratory Effort / Characteristics Respiratory Depth Blood Pressure 121/59 L Blood Pressure [Left Arm] Blood Pressure Mean 79 Blood Pressure Mean [Left Arm] Blood Pressure Position [Left Arm] Pulse Oximetry 98 98 97 Oxygen Delivery Method Room Air Room Air Room Air Sepsis Recent Fever Within 48 Hours Sepsis New/Unexplained Change in Mental Status Sepsis Action Taken by Nursing 03/14/21 23:30 03/14/21 23:31 03/15/21 00:00 Temperature Temperature Source Pulse Rate 57 L 56 L 61 Pulse Rate [Apical] Pulse Rate from SpO2 Sensor 57 L 56 L 57 L Pulse Rhythm Pulse Rhythm [Apical] Pulse Strength [Apical] Respiratory Rate 18 23 24 Respiratory Effort / Characteristics Respiratory Depth Blood Pressure 125/65 139/66 Blood Pressure [Left Arm] Blood Pressure Mean 85 90 Blood Pressure Mean [Left Arm] Blood Pressure Position [Left Arm] Pulse Oximetry 97 98 99 Oxygen Delivery Method Room Air Room Air Room Air Sepsis Recent Fever Within 48 Hours Sepsis New/Unexplained Change in Mental Status Sepsis Action Taken by Nursing 03/15/21 00:01 03/15/21 00:30 03/15/21 00:31 Temperature Temperature Source Pulse Rate 57 L 61 62 Pulse Rate [Apical] Pulse Rate from SpO2 Sensor 57 L 61 61 Pulse Rhythm Pulse Rhythm [Apical] Pulse Strength [Apical] Respiratory Rate 19 16 18 Respiratory Effort / Characteristics Respiratory Depth Blood Pressure 140/76 Blood Pressure [Left Arm] Blood Pressure Mean 97 Blood Pressure Mean [Left Arm] Blood Pressure Position [Left Arm] Pulse Oximetry 99 99 99 Oxygen Delivery Method Room Air Room Air Room Air Sepsis Recent Fever Within 48 Hours Sepsis New/Unexplained Change in Mental Status Sepsis Action Taken by Nursing 03/15/21 01:00 03/15/21 01:01 Temperature Temperature Source Pulse Rate 64 62 Pulse Rate [Apical] Pulse Rate from SpO2 Sensor 63 62 Pulse Rhythm Pulse Rhythm [Apical] Pulse Strength [Apical] Respiratory Rate 20 16 Respiratory Effort / Characteristics Respiratory Depth Blood Pressure 150/78 H Blood Pressure [Left Arm] Blood Pressure Mean 102 Blood Pressure Mean [Left Arm] Blood Pressure Position [Left Arm] Pulse Oximetry 97 96 Oxygen Delivery Method Room Air Room Air Sepsis Recent Fever Within 48 Hours Sepsis New/Unexplained Change in Mental Status Sepsis Action Taken by [facility] Medications Current Medication List: was personally reviewed by me Laboratory Data Attestation: I reviewed the patient's lab results. Result diagrams: 03/14/21 22:43 03/14/21 22:43 Lab Results 03/14/21 03/14/21 03/14/21 Range/Units 22:07 22:40 22:40 WBC (4.8-10.8) K/uL RBC (4.2-5.4) M/uL Hgb (12.0-16.0) g/dL Hct (37-47) % MCV (80-100) fL MCH (25-34) pg MCHC (32-36) g/dL RDW Std Deviation (36.4-46.3) fL RDW Coeff of Addison (11.5-14.5) % Plt Count (130-400) K/uL MPV (7.4-10.4) fL Immature Gran % (Auto) % Neut % (Auto) % Lymph % (Auto) % Banner % (Auto) % Eos % (Auto) % Baso % (Auto) % Neut # (Auto) (1.4-6.5) K/uL Lymph # (Auto) (1.2-3.4) K/uL Banner # (Auto) (0.11-0.59) K/uL Eos # (Auto) (0-0.5) K/uL Baso # (Auto) (0-0.2) K/uL Immature Gran # (Auto) (0.00-0.02) K/uL PT (9.0-12.0) Seconds INR (0.9-1.1) APTT (21.0-31.0) Seconds PTT Ratio Sodium (136-145) mmol/L Potassium (3.5-5.1) mmol/L Chloride (98-107) mmol/L Carbon Dioxide (21-32) mmol/L Anion Gap (3-11) BUN (7-18) mg/dl Creatinine (0.6-1.2) mg/dl Est Cr Clr Drug Dosing Est GFR ( Amer) Est GFR (Non-Af Amer) BUN/Creatinine Ratio (10-20) Glucose (70-99) mg/dl Calcium (8.5-10.1) mg/dl Phosphorus (2.5-4.9) mg/dl Magnesium (1.8-2.4) mg/dl Total Bilirubin (0.2-1) mg/dl AST (15-37) U/L ALT (12-78) U/L Alkaline Phosphatase (45-117) U/L Troponin I (0-0.045) ng/ml Total Protein (6.4-8.2) gm/dl Albumin (3.4-5.0) gm/dl Globulin (2.5-4.0) gm/dl Albumin/Globulin Ratio (0.9-2) TSH (0.300-4.500) uIu/ml Free T4 (0.8-1.6) ng/dl Specimen Hemolysis Urine Color Yellow Urine Appearance Cloudy A (Clear) Urine pH 7.0 (4.5-7.5) Ur Specific Frederick 1.020 (1.000-1.030) Urine Protein 2+ H (Negative) Urine Glucose (UA) Negative (Negative) Urine Ketones Negative (Negative) Urine Blood Trace-intact H (Negative) Urine Nitrite Positive A (Negative) Urine Bilirubin Negative (Negative) Urine Urobilinogen Negative (Negative) Ur Leukocyte Esterase 1+ H (Negative) Urine RBC 0-4 (0-4) /hpf Urine WBC >30 H (0-5) /hpf Ur Epithelial Cells >30 H (0-5) /lpf Urine Bacteria 4+ H (Negative) Hyaline Casts >30 H (0-5) /lpf COVID-19 Eval Order CovFluRsv at [facility] SARS-CoV-2 (PCR) NEGATIVE (Negative) Influenza Type A (PCR) Negative (Neg) Influenza Type B (PCR) Negative (Neg) RSV (RT-PCR) Negative (Neg) 03/14/21 03/14/21 03/14/21 Range/Units 22:43 22:43 22:43 WBC 8.55 (4.8-10.8) K/uL RBC 3.46 L (4.2-5.4) M/uL Hgb 11.7 L (12.0-16.0) g/dL Hct 33.8 L (37-47) % MCV 97.7 (80-100) fL MCH 33.8 (25-34) pg MCHC 34.6 (32-36) g/dL RDW Std Deviation 47.4 H (36.4-46.3) fL RDW Coeff of Addison 13.5 (11.5-14.5) % Plt Count 144 (130-400) K/uL MPV 11.0 H (7.4-10.4) fL Immature Gran % (Auto) 0.2 % Neut % (Auto) 77.2 % Lymph % (Auto) 10.4 % Banner % (Auto) 7.8 % Eos % (Auto) 4.2 % Baso % (Auto) 0.2 % Neut # (Auto) 6.59 H (1.4-6.5) K/uL Lymph # (Auto) 0.89 L (1.2-3.4) K/uL Banner # (Auto) 0.67 H (0.11-0.59) K/uL Eos # (Auto) 0.36 (0-0.5) K/uL Baso # (Auto) 0.02 (0-0.2) K/uL Immature Gran # (Auto) 0.02 (0.00-0.02) K/uL PT 10.9 (9.0-12.0) Seconds INR 1.1 (0.9-1.1) APTT 23.5 (21.0-31.0) Seconds PTT Ratio 0.9 Sodium 140 (136-145) mmol/L Potassium 3.5 (3.5-5.1) mmol/L Chloride 108 H (98-107) mmol/L Carbon Dioxide 25 (21-32) mmol/L Anion Gap 6.0 (3-11) BUN 14 (7-18) mg/dl Creatinine 1.46 H (0.6-1.2) mg/dl Est Cr Clr Drug Dosing Not Reportable Est GFR ( Amer) 39.8 Est GFR (Non-Af Amer) 34.4 BUN/Creatinine Ratio 9.2 L (10-20) Glucose 162 H (70-99) mg/dl Calcium 7.9 L (8.5-10.1) mg/dl Phosphorus 2.2 L (2.5-4.9) mg/dl Magnesium 1.9 (1.8-2.4) mg/dl Total Bilirubin 0.3 (0.2-1) mg/dl AST 19 (15-37) U/L ALT 8 L (12-78) U/L Alkaline Phosphatase 143 H (45-117) U/L Troponin I < 0.015 (0-0.045) ng/ml Total Protein 6.1 L (6.4-8.2) gm/dl Albumin 2.4 L (3.4-5.0) gm/dl Globulin 3.7 (2.5-4.0) gm/dl Albumin/Globulin Ratio 0.6 L (0.9-2) TSH 73.800 H (0.300-4.500) uIu/ml Free T4 0.95 (0.8-1.6) ng/dl Specimen Hemolysis Urine Color Urine Appearance (Clear) Urine pH (4.5-7.5) Ur Specific Frederick (1.000-1.030) Urine Protein (Negative) Urine Glucose (UA) (Negative) Urine Ketones (Negative) Urine Blood (Negative) Urine Nitrite (Negative) Urine Bilirubin (Negative) Urine Urobilinogen (Negative) Ur Leukocyte Esterase (Negative) Urine RBC (0-4) /hpf Urine WBC (0-5) /hpf Ur Epithelial Cells (0-5) /lpf Urine Bacteria (Negative) Hyaline Casts (0-5) /lpf COVID-19 Eval Order SARS-CoV-2 (PCR) (Negative) Influenza Type A (PCR) (Neg) Influenza Type B (PCR) (Neg) RSV (RT-PCR) (Neg) Administered Medications Heparin Sodium (Porcine) (Heparin Sod 5,000 Unit/0.5 Ml Vial) 5,000 units SQ Q12 KELBY Stop: 04/14/21 08:59 Last Admin: 03/15/21 08:36 Dose: 5,000 units Documented by: [id number] Sodium Chloride (Nss 1000ml) 1,000 mls @ 80 mls/hr IV .[id number] [facility] Stop: 03/16/21 03:35 Last Admin: 03/15/21 15:11 Dose: 80 mls/hr Documented by: [id number] Infusion: 03/15/21 15:11 Dose: 80 mls/hr Documented by: [id number] Admin: 03/15/21 02:56 Dose: 80 mls/hr Documented by: [id number] Levothyroxine Sodium (Levothyroxine Sodium 125 Mcg Tablet) 125 mcg PO DAILYBB [facility] Stop: 04/14/21 06:29 Last Admin: 03/15/21 05:30 Dose: 125 mcg Documented by: [id number] Metoprolol Succinate (Metoprolol Succ 50mg Ext Rel Tab) 50 mg PO DAILY [facility] Stop: 04/14/21 08:59 Last Admin: 03/15/21 08:36 Dose: 50 mg Documented by: [id number] Discontinued Medications Sodium Chloride (Nss 1000ml) 1,000 mls @ 999 mls/hr IV .[id number] [facility] Stop: 03/14/21 23:15 Last Infusion: 03/14/21 23:31 Dose: 0 mls/hr Documented by: [id number] Admin: 03/14/21 22:25 Dose: 999 mls/hr Documented by: [id number] Ceftriaxone Sodium (Rocephin) 2,000 mg in 70 mls @ 140 mls/hr IV NOW [facility] Stop: 03/14/21 23:39 Last Infusion: 03/15/21 00:24 Dose: 0 mls/hr Documented by: [id number] Admin: 03/14/21 23:31 Dose: 140 mls/hr Documented by: [id number] Imaging Data Radiologist's Impression: Chest X-Ray 03/14/21 22:10 XR chest 1V portable CLINICAL HISTORY: syncope COMPARISON STUDY: Chest radiograph February 27, 2020. FINDINGS: Lung volumes are normal. Lungs are clear. There is no pneumothorax or pleural effusion. Cardiac size is stable. Mediastinal contours are normal. There is no evidence for pulmonary edema. Upper mediastinal widening is unchanged. Patient is rotated. IMPRESSION: No acute cardiopulmonary findings. No significant change in appearance of the chest. ACT 112: Negative or not required by law. Electronically signed by: Charly Seth M.D. 03/15/2021 7:03 AM Discharge Plan Visit Data Chief Complaint: Syncope Stated Complaint: SYNCOPE ED Provider: Praveen Ronquillo Discharge Problem: Syncope, Acute UTI, Hypocalcemia, Hypophosphatemia Patient Disposition: Admitted As Inpatient Discharge Instructions Interventions: ED Discharge Assessment Last Done: 03/15/21 02:07 Discharge Problem: Syncope Qualifiers: Syncope type: unspecified Qualified Code(s): R55 - Syncope and collapse
[2021-03-14] MEDS ORDERED: SODIUM CHLORIDE 0.9% 1000ML 1,000 ML IV SCH (22:15)
[2021-03-14 22:55] LABS: Basophils # (auto) 0.02 K/uL (0-0.2); Basophils % (auto) 0.2 %; Eosinophils # (auto) 0.36 K/uL (0-0.5); Eosinophils % (auto) 4.2 %; Hematocrit (blood only) 33.8 % (37-47); Hemoglobin 11.7 g/dL (12.0-16.0); Immature Granulocytes # (auto) 0.02 K/uL (0.00-0.02); Immature Granulocytes % (auto) 0.2 %; Lymphocytes # (auto) 0.89 K/uL (1.2-3.4); Lymphocytes % (auto) 10.4 %; Mean Corpuscular Hemoglobin 33.8 pg (25-34); Mean Corpuscular Hgb Conc 34.6 g/dL (32-36); Mean Corpuscular Volume 97.7 fL (80-100); Monocytes # (auto) 0.67 K/uL (0.11-0.59); Monocytes % (auto) 7.8 %; Neutrophils # (auto) 6.59 K/uL (1.4-6.5); Neutrophils % (auto) 77.2 %; Platelet Count 144 K/uL (130-400); RDW Coefficient of Variation 13.5 % (11.5-14.5); RDW Standard Deviation 47.4 fL (36.4-46.3); Red Blood Count 3.46 M/uL (4.2-5.4); White Blood Count 8.55 K/uL (4.8-10.8)
[2021-03-14 23:00] LABS: Appearance Urine Cloudy (Clear); Bilirubin Urine Negative (Negative); Blood Urine Trace-intact (Negative); Color Urine Yellow; Glucose Urine UA Negative (Negative); Ketones Urine Negative (Negative); Leukocyte Esterase Urine 1+ (Negative); Nitrite Urine Positive (Negative); Protein Urine 2+ (Negative); Urobilinogen Urine Negative (Negative)
[2021-03-14 23:07] LABS: INR 1.1 (0.9-1.1); Partial Thromboplastin Ratio 0.9; Partial Thromboplastin Time 23.5 Seconds (21.0-31.0); Prothrombin Time 10.9 Seconds (9.0-12.0)
[2021-03-14] MEDS ORDERED: cefTRIAXone SODIUM 2,000 MG/70 ML BAG IV STA (23:10)
[2021-03-14 23:18] LABS: Alanine Aminotransferase 8 U/L (12-78); Albumin Level 2.4 gm/dl (3.4-5.0); Aspartate Aminotransferase 19 U/L (15-37); BUN Creatinine Ratio 9.2 (10-20); Blood Urea Nitrogen 14 mg/dl (7-18); Calcium 7.9 mg/dl (8.5-10.1); Carbon Dioxide 25 mmol/L (21-32); Chloride 108 mmol/L (98-107); Est GFR (African American) 39.8; Est GFR (Non-African American) 34.4; Glucose 162 mg/dl (70-99); Magnesium 1.9 mg/dl (1.8-2.4); Potassium 3.5 mmol/L (3.5-5.1); Sodium 140 mmol/L (136-145)
[2021-03-14 23:27] LABS: Bacteria Urine 4+ (Negative); Epithelial Cell Urine >30 /lpf (0-5)
[2021-03-14 23:28] LABS: Hyaline Casts Urine >30 /lpf (0-5); RBC Urine 0-4 /hpf (0-4); WBC Urine >30 /hpf (0-5)
[2021-03-14 23:32] LABS: Albumin Globulin Ratio 0.6 (0.9-2); Alkaline Phosphatase 143 U/L (45-117); Bilirubin,Total 0.3 mg/dl (0.2-1); Globulin 3.7 gm/dl (2.5-4.0); Phosphorus 2.2 mg/dl (2.5-4.9); Total Protein 6.1 gm/dl (6.4-8.2); Troponin I < 0.015 ng/ml (0-0.045)
[2021-03-14 23:50] LABS: Influenza A virus by PCR Negative (Neg); Influenza B virus by PCR Negative (Neg); RSV by PCR Negative (Neg); SARS CoV2 RNA(COVID-19) InHosp NEGATIVE (Negative)
[2021-03-14 23:57] LABS: T4 Free Thyroxine 0.95 ng/dl (0.8-1.6)
--- NOTE | 2021-03-15 01:22 | History & Physical Report ---
Date of Service March 15, 2021 Assessment & Plan (1) Syncope: As noted per patient history. Will be treated for urinary tract infection and mild dehydration. Significantly elevated TSH of 73.80, questions with the patient is actually taking her thyroid supplementation, which will need to be addressed Present on Admission?: Yes (2) Acute UTI: Follow urine culture and sensitivity. Empiric ceftriaxone 2 g IV daily NSS at 80 mils per hour x2 L Present on Admission?: Yes (3) Dementia: The first words the patient spoke to me in the emergency department was to say that "I have dementia". Not on any overt treatment this time. 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 Present on Admission?: Yes (4) Hypothyroidism (acquired): TSH 73.80 and free T4 0.95. Record review reveals TSH of 89.00 on April 12, 2019. Record review reveals TSH of 41.20 on February 27, 2020. Unclear reasons for under treatment at this time. Will need to be discussed with outpatient care Continue outpatient regimen of levothyroxine 125 mcg p.o. daily Present on Admission?: Yes (5) Hypertension: Continue metoprolol succinate 50 mg p.o. daily with hold parameters Present on Admission?: Yes History of Present Illness Chief Complaint: The patient presents to the emergency department with complaint of a syncopal episode of approximately 1 minute duration while sitting on a couch at home Primary Care Provider: Jose Angel Montes De Oca MD The patient is a 75-year-old female with a past medical history including dementia, hypertension, hypothyroidism, urinary tract infection, syncope and collapse, orthostatic syncope, cervical radicular pain, weight loss, and history of back surgery. She presents with symptoms as noted above Allergies Allergy/AdvReac Type Severity Reaction Status Date / Time camphor Allergy Severe Anaphylaxis Verified 03/14/21 23:16 furosemide Allergy Severe ICHING, Verified 03/14/21 23:16 BODY PAIN potassium Allergy Intermediate BLACKS OUT Verified 03/14/21 23:16 resveratrol Allergy Intermediate PASSES OUT Verified 03/14/21 23:16 Sulfa (Sulfonamide Allergy Intermediate Hives Verified 03/14/21 23:16 Antibiotics) celecoxib Allergy Unknown CAN'T Verified 03/14/21 23:16 REMEMBER rofecoxib Allergy Unknown CAN'T Verified 03/14/21 23:16 REMEMBER venlafaxine Allergy Unknown CAN'T Verified 03/14/21 23:16 REMEMBER ibuprofen [From Advil] AdvReac Unknown CAN'T Verified 03/14/21 23:16 REMEMBER RESVINATROL COMPLETE Allergy Severe Swelling Uncoded 03/14/21 23:16 throat/tongue.Difficulty breathing.Spacing of words Home Medications Medication Instructions Recorded Confirmed Type levothyroxine 125 mcg tablet 125 mcg PO DAILY #90 tab 06/10/20 03/14/21 Rx metoprolol succinate 50 mg 50 mg PO DAILY #90 tab 06/10/20 03/14/21 Rx tablet,extended release 24 hr acetaminophen [Tylenol Extra 500 mg PO Q6H PRN 03/14/21 03/14/21 History Strength] Past Med/Surg History Medical History (Updated 03/15/21 @ 03:53 by Lalito Nickerson MD) Dementia Hypertension Hypothyroidism (acquired) Surgical History History of back surgery History of cataract surgery History of colonoscopy History of esophagogastroduodenoscopy (EGD) History of laparoscopic cholecystectomy History of total abdominal hysterectomy and bilateral salpingo-oophorectomy Family History Unknown Factor V Leiden mutation Father Coronary heart disease Myocardial infarction Mother Coronary heart disease Social History Smoking Status: Never smoker Second Hand Exposure: No; Do You Dip or Chew Tobacco: No; Tobacco Cessation Education Requested by Patient: No Hx Alcohol Use: No Hx Substance Use: No Preferred Language: Spanish Communication Ability: Effective Electromechanical Engineer Required: No Beliefs That Will Affect Care: None Current Living Situation: Family Feels Safe at Home: Yes Safety Concerns: Feels Safe At This Time Assistive Devices: Walker Assistive Devices Comment: pt states she has a walker at home but does not walk Review of Systems Review of Systems: The patient denies chest pain, palpitations, shortness of breath, dyspnea on exertion, cough, lower extremity swelling, sore throat, fevers, chills, sweats, nausea, vomiting, diarrhea , constipation, abdominal pain, pelvic pain, blood in urine or stool, dysuria, urinary frequency or urgency, lightheadedness, dizziness, headache, loss of consciousness, rash, abnormal bruising or bleeding, imbalance, focal or generalized weakness, numbness or tingling in arms or legs, generalized arthralgias or myalgias, or night sweats. The review of systems is otherwise negative other than for that already noted above, and at least 10 systems have been reviewed. Physical Exam Physical Exam: The patient is awake, alert and oriented 3, well developed and well nourished, normocephalic and atraumatic, lying in bed and in no acute distress. HEENT--PERRL, EOMI, mucous membranes and oropharynx dry. Neck--supple. No JVD. No bruits. Thyroid normal, trachea midline, no adenopathy. Heart--normal S1 and S2. No murmurs, rubs or gallops. Lungs--clear bilaterally, no respiratory distress, no accessory muscle use. Abdomen--normal bowel sounds and soft. Nontender. Nondistended. Extremities--no cyanosis or clubbing. No edema. Dermatologic--normal skin turgor, normal color, no abnormal lymph nodes, no rash. Neurologic--cranial nerves II through XII grossly intact. Rheumatologic--normal range of motion. Psychiatric--normal affect. Results & Data Results & Data ([facility]) Vital Signs (Past 12 Hours) Vital Signs Temp Pulse Pulse Resp BP BP Pulse Ox 03/15/21 01:01 62 16 96 03/15/21 01:00 64 20 150/78 H 97 03/15/21 00:31 62 18 99 03/15/21 00:30 61 16 140/76 99 03/15/21 00:01 57 L 19 99 03/15/21 00:00 61 24 139/66 99 03/14/21 23:31 56 L 23 98 03/14/21 23:30 57 L 18 125/65 97 03/14/21 23:20 58 L 15 97 03/14/21 23:15 56 L 20 121/59 L 98 03/14/21 23:01 56 L 18 98 03/14/21 23:00 57 L 20 132/58 L 98 03/14/21 22:23 97 03/14/21 22:15 57 L 20 103/60 97 03/14/21 22:08 98.1 F 62 18 117/71 99 Laboratory Results Laboratory Results WBC 8.55 K/uL (4.8-10.8) 03/14/21 22:43 RBC 3.46 M/uL (4.2-5.4) L 03/14/21 22:43 Hgb 11.7 g/dL (12.0-16.0) L 03/14/21 22:43 Hct 33.8 % (37-47) L 03/14/21 22:43 MCV 97.7 fL (80-100) 03/14/21 22:43 MCH 33.8 pg (25-34) 03/14/21 22:43 MCHC 34.6 g/dL (32-36) 03/14/21 22:43 RDW Std Deviation 47.4 fL (36.4-46.3) H 03/14/21 22:43 RDW Coeff of [place]ison 13.5 % (11.5-14.5) 03/14/21 22:43 Plt Count 144 K/uL (130-400) 03/14/21 22:43 MPV 11.0 fL (7.4-10.4) H 03/14/21 22:43 Immature Gran % (Auto) 0.2 % 03/14/21 22:43 Neut % (Auto) 77.2 % 03/14/21 22:43 Lymph % (Auto) 10.4 % 03/14/21 22:43 [place] % (Auto) 7.8 % 03/14/21 22:43 Eos % (Auto) 4.2 % 03/14/21 22:43 Baso % (Auto) 0.2 % 03/14/21 22:43 Neut # (Auto) 6.59 K/uL (1.4-6.5) H 03/14/21 22:43 Lymph # (Auto) 0.89 K/uL (1.2-3.4) L 03/14/21 22:43 [place] # (Auto) 0.67 K/uL (0.11-0.59) H 03/14/21 22:43 Eos # (Auto) 0.36 K/uL (0-0.5) 03/14/21 22:43 Baso # (Auto) 0.02 K/uL (0-0.2) 03/14/21 22:43 Immature Gran # (Auto) 0.02 K/uL (0.00-0.02) 03/14/21 22:43 PT 10.9 Seconds (9.0-12.0) 03/14/21 22:43 INR 1.1 (0.9-1.1) 03/14/21 22:43 APTT 23.5 Seconds (21.0-31.0) 03/14/21 22:43 PTT Ratio 0.9 03/14/21 22:43 Sodium 140 mmol/L (136-145) 03/14/21 22:43 Potassium 3.5 mmol/L (3.5-5.1) 03/14/21 22:43 Chloride 108 mmol/L (98-107) H 03/14/21 22:43 Carbon Dioxide 25 mmol/L (21-32) 03/14/21 22:43 Anion Gap 6.0 (3-11) 03/14/21 22:43 BUN 14 mg/dl (7-18) 03/14/21 22:43 Creatinine 1.46 mg/dl (0.6-1.2) H 03/14/21 22:43 Est Cr Clr Drug Dosing Not Reportable 03/14/21 22:43 Est GFR ( Amer) 39.8 03/14/21 22:43 Est GFR (Non-Af Amer) 34.4 03/14/21 22:43 BUN/Creatinine Ratio 9.2 (10-20) L 03/14/21 22:43 Glucose 162 mg/dl (70-99) H 03/14/21 22:43 Calcium 7.9 mg/dl (8.5-10.1) L 03/14/21 22:43 Phosphorus 2.2 mg/dl (2.5-4.9) L 03/14/21 22:43 Magnesium 1.9 mg/dl (1.8-2.4) 03/14/21 22:43 Total Bilirubin 0.3 mg/dl (0.2-1) 03/14/21 22:43 AST 19 U/L (15-37) 03/14/21 22:43 ALT 8 U/L (12-78) L 03/14/21 22:43 Alkaline Phosphatase 143 U/L (45-117) H 03/14/21 22:43 Troponin I < 0.015 ng/ml (0-0.045) 03/14/21 22:43 Total Protein 6.1 gm/dl (6.4-8.2) L 03/14/21 22:43 Albumin 2.4 gm/dl (3.4-5.0) L 03/14/21 22:43 Globulin 3.7 gm/dl (2.5-4.0) 03/14/21 22:43 Albumin/Globulin Ratio 0.6 (0.9-2) L 03/14/21 22:43 TSH 73.800 uIu/ml (0.300-4.500) H 03/14/21 22:43 Free T4 0.95 ng/dl (0.8-1.6) 03/14/21 22:43 Specimen Hemolysis 03/14/21 22:43 Urine Color Yellow 03/14/21 22:07 Urine Appearance Cloudy (Clear) A 03/14/21 22:07 Urine pH 7.0 (4.5-7.5) 03/14/21 22:07 Ur Specific [place] 1.020 (1.000-1.030) 03/14/21 22:07 Urine Protein 2+ (Negative) H 03/14/21 22:07 Urine Glucose (UA) Negative (Negative) 03/14/21 22:07 Urine Ketones Negative (Negative) 03/14/21 22:07 Urine Blood Trace-intact (Negative) H 03/14/21 22:07 Urine Nitrite Positive (Negative) A 03/14/21 22:07 Urine Bilirubin Negative (Negative) 03/14/21 22:07 Urine Urobilinogen Negative (Negative) 03/14/21 22:07 Ur Leukocyte Esterase 1+ (Negative) H 03/14/21 22:07 Urine RBC 0-4 /hpf (0-4) 03/14/21 22:07 Urine WBC >30 /hpf (0-5) H 03/14/21 22:07 Ur Epithelial Cells >30 /lpf (0-5) H 03/14/21 22:07 Urine Bacteria 4+ (Negative) H 03/14/21 22:07 Hyaline Casts >30 /lpf (0-5) H 03/14/21 22:07 COVID-19 Eval Order CovFluRsv at [facility] 03/14/21 22:40 SARS-CoV-2 (PCR) NEGATIVE (Negative) 03/14/21 22:40 Influenza Type A (PCR) Negative (Neg) 03/14/21 22:40 Influenza Type B (PCR) Negative (Neg) 03/14/21 22:40 RSV (RT-PCR) Negative (Neg) 03/14/21 22:40 Code Status & VTE Plan Code Status Full code VTE Prophylaxis Plan VTE Prophylaxis will be ordered: Yes PG Care Time/CCT Total # of Minutes Spent Total Time Spent with Patient: Total time spent is greater than 50% in coordination of care (as documented) at patient's floor/unit and/or counseling patient: Coding Level of Care Code 77794 Initial Inpt Care Lvl 2 Diagnoses Syncope R55 Syncope type: unspecified Acute UTI N39.0 Dementia F03.90 Hypothyroidism (acquired) E03.9 Hypertension I10 (1) Syncope Syncope type: unspecified Qualified Code(s): R55 - Syncope and collapse
[2021-03-15] MEDS ORDERED: ACETAMINOPHEN HOME PACK 500 MG TABLET PO PRN (02:36)
[2021-03-15] MEDS ORDERED: ACETAMINOPHEN 325 MG TAB PO PRN (02:36)
[2021-03-15] MEDS: SODIUM CHLORIDE 0.9% 1000ML 1,000 ML IV SCH ×2 (02:56→15:11)
[2021-03-15] MEDS: LEVOTHYROXINE SODIUM 125 MCG TABLET PO SCH (05:30)
--- NOTE | 2021-03-15 07:05 | XRay Report ---
XR chest 1V portable CLINICAL HISTORY: syncope COMPARISON STUDY: Chest radiograph February 27, 2020. FINDINGS: Lung volumes are normal. Lungs are clear. There is no pneumothorax or pleural effusion. Car diac size is stable. Mediastinal contours are normal. There is no evidence for pulmonary edema. Upper mediastinal widening is unchanged. Patient is rotated. IMPRESSION: No acute cardiopulmonary findings. No significant change in appearance of the chest. ACT 112: Negative or not required by law. Electronically signed by: Charly Seth M.D. 03/15/2021 7:03 AM
[2021-03-15] MEDS: METOPROLOL SUCC 50MG EXT REL TAB PO SCH (08:36)
[2021-03-15] MEDS: HEPARIN SOD 5,000 UNIT/0.5 ML VIAL SQ SCH ×2 (08:36→20:18)
--- NOTE | 2021-03-15 09:26 | Hospitalist Progress Note ---
Date of Service March 15, 2021 Assessment & Plan (1) Syncope: 75-year-old female with past medical history of dementia, hypertension, hypothyroidism, weight loss presents for evaluation status post syncopal episode diagnosed with acute UTI. #Syncope As noted per patient history. ? Secondary t urinary tract infection and mild dehydration.Significantly elevated TSH of 73.80, questions with the patient is actually taking her thyroid supplementation, which will need to be addressed. -Monitor for reoccurrence #Asyx Bacteriuria Denies suprapubic pain, urinary frequency, afvss, no other concerning signs or features. Follow urine culture and sensitivity. -D/C CTX #Dementia Oriented to person place. Her dementia is well-known to her primary care provider who is monitoring the prognosis. Not on any overt treatment this time. 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 Her dementia has been extensively worked up in the past by neurology, and attempts were made to use multiple medications to slow her improve her dementia without benefit. Her dementia appears to be pretty severe as she "simply stopped paying her property taxes previously and was therefore forced to move out of her home ". in the past she has self discontinued medications, currently she lives with her daughter who provides 24-hour care. -Dementia precautions -Sundowning precautions -PT OT Case management consulted #Hypothyroidism Long history of hypothyroidism, per record review TSH of 89 in April 12, 2019, TSH of 41.2 February 27, 2020, on presentation TSH 73.8, free T4 0.95 TSH 73.80 and free T4 0.95. Has a history of self discontinuing medications, question medication compliance. Record review reveals TSH of 89.00 on April 12, 2019. Record review reveals TSH of 41.20 on February 27, 2020. Unclear reasons for under treatment at this time. Will need to be discussed with outpatient care Continue outpatient regimen of levothyroxine 125 mcg p.o. daily #Hypertension Continue metoprolol succinate 50 mg p.o. daily with hold parameters FENa: Regular Code Status: Full DVT PPX: SCDs PT/OT: Ordered Dispo: Yissel Art MD PGY 2, FCM This chart was completed utilizing [email or web address] voice recognition software. Grammatical errors, random word insertions, pronoun errors, and in complete sentences are an occasional consequence of the system. Any questions or concerns about the content, text, or information contained within the body of this dictation should be addressed directly to the physician for clarification. (2) Acute UTI: (3) Dementia: (4) Hypothyroidism (acquired): (5) Hypertension: Admission and Anticipated Discharge Date Admission Date: March 15, 2021 Supervising Physician Co-Signing Physician Notes I personally examined the patient and verified all oliveira points of history and exam, discussed case, and agree with decision making with Dr Art feeling fine. pleasantly confused. no acute complaints. when dr art d/w dtr she feels rehab would be warranted vitals noted nad heent nc at mmm breathing unlabored no accessory muscles good effort skin no rashes no pallor or icterus neuro no focal deficits abd soft nd nt syncope - ?dehydration vs fatigue from hypothyroid - either way improved. dementia/weakness - appears to have been bordering on SNF for much of the last year; quite reasonable that dtr feels she should have some form of placement. PT/OT eval and treat, case management working on this hypothyroidism - exceedingly likely high TSH is from poor adherence, which likely relates to dementia as well. continue synthroid for now, repeat TSH ~4wks. possible that dementia phenotypically appears worse than it is from fairly significant hypothyroidism - to follow dvt proph - heparin sq otherwise as above Subjective Patient lying in bed this morning eating breakfast. Patient reported sleeping well overnight, endorsing that she liked the way the SCDs felt. She endorses having dementia, denies a history of suprapubic pressure or pain with urination, does endorse a history of weakness. Patient reports tolerating her diet, voiding, stooling. All questions answered, no acute concerns Physical Exam Physical Exam: General: Lying in bed no acute distress HEENT: Normocephalic atraumatic Neck: Normal to visual inspection, trachea midline Cardiac: Regular rate and rhythm I did not appreciate significant murmurs rubs or gallops, normal S1, normal S2, negative pedal edema, negative calf tenderness Respiratory: Clear to auscultation bilaterally with symmetrical chest expansion I did not appreciate significant wheezes, rales, rhonchi GI: Soft, nontender, nondistended, bowel sounds present all 4 quadrants MSK: Moves all extremities Skin: Some bruising near the IV site Neuro: Alert and oriented to person, place, did not know who the president was and was unsure of the year or the date Psych: Calm and cooperative with interview Results & Data Results & Data ([facility]) Vital Signs (Past 12 Hours) Vital Signs Temp Pulse Pulse Pulse Resp BP BP 03/15/21 07:23 36.7 C 69 16 146/84 H 03/15/21 02:25 36.4 C L 69 20 157/71 H 03/15/21 02:00 58 L 22 03/15/21 01:31 64 19 03/15/21 01:30 61 24 117/66 03/15/21 01:01 62 16 03/15/21 01:00 64 20 150/78 H 03/15/21 00:31 62 18 03/15/21 00:30 61 16 140/76 03/15/21 00:01 57 L 19 03/15/21 00:00 61 24 139/66 03/14/21 23:31 56 L 23 03/14/21 23:30 57 L 18 125/65 03/14/21 23:20 58 L 15 03/14/21 23:15 56 L 20 121/59 L 03/14/21 23:01 56 L 18 03/14/21 23:00 57 L 20 132/58 L 03/14/21 22:23 03/14/21 22:15 57 L 20 103/60 03/14/21 22:08 36.7 C 62 18 117/71 Pulse Ox 03/15/21 07:23 97 03/15/21 02:25 99 03/15/21 02:00 95 03/15/21 01:31 97 03/15/21 01:30 96 03/15/21 01:01 96 03/15/21 01:00 97 03/15/21 00:31 99 03/15/21 00:30 99 03/15/21 00:01 99 03/15/21 00:00 99 03/14/21 23:31 98 03/14/21 23:30 97 03/14/21 23:20 97 03/14/21 23:15 98 03/14/21 23:01 98 03/14/21 23:00 98 03/14/21 22:23 97 03/14/21 22:15 97 03/14/21 22:08 99 Laboratory Results 03/14/21 03/14/21 03/14/21 Range/Units 22:43 22:43 22:43 WBC 8.55 (4.8-10.8) K/uL RBC 3.46 L (4.2-5.4) M/uL Hgb 11.7 L (12.0-16.0) g/dL Hct 33.8 L (37-47) % MCV 97.7 (80-100) fL MCH 33.8 (25-34) pg MCHC 34.6 (32-36) g/dL RDW Std Deviation 47.4 H (36.4-46.3) fL RDW Coeff of [place]ison 13.5 (11.5-14.5) % Plt Count 144 (130-400) K/uL MPV 11.0 H (7.4-10.4) fL Immature Gran % (Auto) 0.2 % Neut % (Auto) 77.2 % Lymph % (Auto) 10.4 % [place] % (Auto) 7.8 % Eos % (Auto) 4.2 % Baso % (Auto) 0.2 % Neut # (Auto) 6.59 H (1.4-6.5) K/uL Lymph # (Auto) 0.89 L (1.2-3.4) K/uL [place] # (Auto) 0.67 H (0.11-0.59) K/uL Eos # (Auto) 0.36 (0-0.5) K/uL Baso # (Auto) 0.02 (0-0.2) K/uL Immature Gran # (Auto) 0.02 (0.00-0.02) K/uL PT 10.9 (9.0-12.0) Seconds INR 1.1 (0.9-1.1) APTT 23.5 (21.0-31.0) Seconds PTT Ratio 0.9 Sodium 140 (136-145) mmol/L Potassium 3.5 (3.5-5.1) mmol/L Chloride 108 H (98-107) mmol/L Carbon Dioxide 25 (21-32) mmol/L Anion Gap 6.0 (3-11) BUN 14 (7-18) mg/dl Creatinine 1.46 H (0.6-1.2) mg/dl Est Cr Clr Drug Dosing Not Reportable Est GFR ( Amer) 39.8 Est GFR (Non-Af Amer) 34.4 BUN/Creatinine Ratio 9.2 L (10-20) Glucose 162 H (70-99) mg/dl Calcium 7.9 L (8.5-10.1) mg/dl Phosphorus 2.2 L (2.5-4.9) mg/dl Magnesium 1.9 (1.8-2.4) mg/dl Total Bilirubin 0.3 (0.2-1) mg/dl AST 19 (15-37) U/L ALT 8 L (12-78) U/L Alkaline Phosphatase 143 H (45-117) U/L Troponin I < 0.015 (0-0.045) ng/ml Total Protein 6.1 L (6.4-8.2) gm/dl Albumin 2.4 L (3.4-5.0) gm/dl Globulin 3.7 (2.5-4.0) gm/dl Albumin/Globulin Ratio 0.6 L (0.9-2) TSH 73.800 H (0.300-4.500) uIu/ml Free T4 0.95 (0.8-1.6) ng/dl Specimen Hemolysis Urine Color Urine Appearance (Clear) Urine pH (4.5-7.5) Ur Specific [place] (1.000-1.030) Urine Protein (Negative) Urine Glucose (UA) (Negative) Urine Ketones (Negative) Urine Blood (Negative) Urine Nitrite (Negative) Urine Bilirubin (Negative) Urine Urobilinogen (Negative) Ur Leukocyte Esterase (Negative) Urine RBC (0-4) /hpf Urine WBC (0-5) /hpf Ur Epithelial Cells (0-5) /lpf Urine Bacteria (Negative) Hyaline Casts (0-5) /lpf COVID-19 Eval Order SARS-CoV-2 (PCR) (Negative) Influenza Type A (PCR) (Neg) Influenza Type B (PCR) (Neg) RSV (RT-PCR) (Neg) 03/14/21 03/14/21 03/14/21 Range/Units 22:40 22:40 22:07 WBC (4.8-10.8) K/uL RBC (4.2-5.4) M/uL Hgb (12.0-16.0) g/dL Hct (37-47) % MCV (80-100) fL MCH (25-34) pg MCHC (32-36) g/dL RDW Std Deviation (36.4-46.3) fL RDW Coeff of [place] (11.5-14.5) % Plt Count (130-400) K/uL MPV (7.4-10.4) fL Immature Gran % (Auto) % Neut % (Auto) % Lymph % (Auto) % [place] % (Auto) % Eos % (Auto) % Baso % (Auto) % Neut # (Auto) (1.4-6.5) K/uL Lymph # (Auto) (1.2-3.4) K/uL [place] # (Auto) (0.11-0.59) K/uL Eos # (Auto) (0-0.5) K/uL Baso # (Auto) (0-0.2) K/uL Immature Gran # (Auto) (0.00-0.02) K/uL PT (9.0-12.0) Seconds INR (0.9-1.1) APTT (21.0-31.0) Seconds PTT Ratio Sodium (136-145) mmol/L Potassium (3.5-5.1) mmol/L Chloride (98-107) mmol/L Carbon Dioxide (21-32) mmol/L Anion Gap (3-11) BUN (7-18) mg/dl Creatinine (0.6-1.2) mg/dl Est Cr Clr Drug Dosing Est GFR ( Amer) Est GFR (Non-Af Amer) BUN/Creatinine Ratio (10-20) Glucose (70-99) mg/dl Calcium (8.5-10.1) mg/dl Phosphorus (2.5-4.9) mg/dl Magnesium (1.8-2.4) mg/dl Total Bilirubin (0.2-1) mg/dl AST (15-37) U/L ALT (12-78) U/L Alkaline Phosphatase (45-117) U/L Troponin I (0-0.045) ng/ml Total Protein (6.4-8.2) gm/dl Albumin (3.4-5.0) gm/dl Globulin (2.5-4.0) gm/dl Albumin/Globulin Ratio (0.9-2) TSH (0.300-4.500) uIu/ml Free T4 (0.8-1.6) ng/dl Specimen Hemolysis Urine Color Yellow Urine Appearance Cloudy A (Clear) Urine pH 7.0 (4.5-7.5) Ur Specific [place] 1.020 (1.000-1.030) Urine Protein 2+ H (Negative) Urine Glucose (UA) Negative (Negative) Urine Ketones Negative (Negative) Urine Blood Trace-intact H (Negative) Urine Nitrite Positive A (Negative) Urine Bilirubin Negative (Negative) Urine Urobilinogen Negative (Negative) Ur Leukocyte Esterase 1+ H (Negative) Urine RBC 0-4 (0-4) /hpf Urine WBC >30 H (0-5) /hpf Ur Epithelial Cells >30 H (0-5) /lpf Urine Bacteria 4+ H (Negative) Hyaline Casts >30 H (0-5) /lpf COVID-19 Eval Order CovFluRsv at [facility] SARS-CoV-2 (PCR) NEGATIVE (Negative) Influenza Type A (PCR) Negative (Neg) Influenza Type B (PCR) Negative (Neg) RSV (RT-PCR) Negative (Neg) Medications Administered Current Inpatient Medications Acetaminophen (Acetaminophen 325 Mg Tab) 650 mg PO Q4H PRN PRN Reason: pain/fever Stop: 04/14/21 02:35 Heparin Sodium (Porcine) (Heparin Sod 5,000 Unit/0.5 Ml Vial) 5,000 units SQ Q12 [facility] Stop: 04/14/21 08:59 Last Admin: 03/15/21 08:36 Dose: 5,000 units Documented by: Ceftriaxone Sodium 2,000 mg/ (Dextrose) 70 mls @ 100 mls/hr IV Q24H [facility]; Protocol Stop: 03/23/21 22:41 Sodium Chloride (Nss 1000ml) 1,000 mls @ 80 mls/hr IV .[id number] [facility] Stop: 03/16/21 03:35 Last Admin: 03/15/21 02:56 Dose: 80 mls/hr Documented by: Levothyroxine Sodium (Levothyroxine Sodium 125 Mcg Tablet) 125 mcg PO DAILYBB [facility] Stop: 04/14/21 06:29 Last Admin: 03/15/21 05:30 Dose: 125 mcg Documented by: Metoprolol Succinate (Metoprolol Succ 50mg Ext Rel Tab) 50 mg PO DAILY [facility] Stop: 04/14/21 08:59 Last Admin: 03/15/21 08:36 Dose: 50 mg Documented by: Resident Activity Tracking Resident Involvement: Resident Care Provided Care Provided: Adult Hospital Medicine (1) Syncope Syncope type: unspecified Qualified Code(s): R55 - Syncope and collapse
--- NOTE | 2021-03-15 12:40 | Electrocardiogram Report ---
Test Reason : Blood Pressure : / mmHG Vent. Rate : 063 BPM Atrial Rate : 063 BPM P-R Int : 140 ms QRS Dur : 092 ms QT Int : 474 ms P-R-T Axes : 052 046 046 degrees QTc Int : 485 ms Normal sinus rhythm Nonspecific ST abnormality Abnormal ECG When compared with ECG of 27-FEB-2020 15:15, No significant change was found Confirmed by Simeon Carr ([id number]) on 03/15/2021 12:40:04 PM Referred By: REFERRED SELF Confirmed By:Simeon Carr
[2021-03-15] MEDS ORDERED: cefTRIAXone SODIUM 2,000 MG in DEXTROSE 5% 50 ML IV SCH (22:00)
[2021-03-16 06:05] LABS: Basophils # (auto) 0.02 K/uL (0-0.2); Basophils % (auto) 0.4 %; Eosinophils # (auto) 0.65 K/uL (0-0.5); Eosinophils % (auto) 11.4 %; Hematocrit (blood only) 29.8 % (37-47); Hemoglobin 10.2 g/dL (12.0-16.0); Immature Granulocytes # (auto) 0.01 K/uL (0.00-0.02); Immature Granulocytes % (auto) 0.2 %; Lymphocytes # (auto) 2.23 K/uL (1.2-3.4); Lymphocytes % (auto) 39.1 %; Mean Corpuscular Hemoglobin 33.2 pg (25-34); Mean Corpuscular Hgb Conc 34.2 g/dL (32-36); Mean Corpuscular Volume 97.1 fL (80-100); Mean Platelet Volume 10.7 fL (7.4-10.4); Monocytes # (auto) 0.46 K/uL (0.11-0.59); Monocytes % (auto) 8.1 %; Neutrophils # (auto) 2.34 K/uL (1.4-6.5); Neutrophils % (auto) 40.8 %; Platelet Count 127 K/uL (130-400); RDW Coefficient of Variation 13.6 % (11.5-14.5); RDW Standard Deviation 48.2 fL (36.4-46.3); Red Blood Count 3.07 M/uL (4.2-5.4); White Blood Count 5.71 K/uL (4.8-10.8)
[2021-03-16] MEDS: LEVOTHYROXINE SODIUM 125 MCG TABLET PO SCH (06:07)
[2021-03-16 06:39] LABS: Albumin Level 2.1 gm/dl (3.4-5.0); BUN Creatinine Ratio 12.5 (10-20); Calcium 7.7 mg/dl (8.5-10.1); Creatinine Clr Calc Pharmacy 38.9 ml/min; Est GFR (African American) 48.1; Est GFR (Non-African American) 41.5; Potassium 3.6 mmol/L (3.5-5.1)
[2021-03-16 06:42] LABS: Albumin Globulin Ratio 0.6 (0.9-2); Bilirubin,Total 0.4 mg/dl (0.2-1); Globulin 3.4 gm/dl (2.5-4.0); Total Protein 5.5 gm/dl (6.4-8.2)
--- NOTE | 2021-03-16 07:20 | Hospitalist Progress Note ---
Date of Service March 16, 2021 Assessment & Plan (1) Syncope: 75-year-old female with past medical history of dementia, hypertension, hypothyroidism, weight loss presents for evaluation status post syncopal episode diagnosed with acute UTI. #Syncope As noted per patient history. ? Secondary t urinary tract infection and mild dehydration.Significantly elevated TSH of 73.80, questions with the patient is actually taking her thyroid supplementation, which will need to be addressed. -Monitor for reoccurrence #Asyx Bacteriuria Denies suprapubic pain, urinary frequency, afvss, no other concerning signs or features. Follow urine culture and sensitivity. #Dementia Oriented to person place. Her dementia is well-known to her primary care provider who is monitoring the prognosis. Not on any overt treatment this time. 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 Her dementia has been extensively worked up in the past by neurology, and attempts were made to use multiple medications to slow her improve her dementia without benefit. Her dementia appears to be pretty severe as she "simply stopped paying her property taxes previously and was therefore forced to move out of her home ". in the past she has self discontinued medications, currently she lives with her daughter who provides 24-hour care. -Dementia precautions -own precautions -PT OT Case management consulted #Hypothyroidism Long history of hypothyroidism, per record review TSH of 89 in April 12, 2019, TSH of 41.2 February 27, 2020, on presentation TSH 73.8, free T4 0.95. Has a history of self discontinuing medications, suspect medication non-compliance. -Continue outpatient regimen of levothyroxine 125 mcg p.o. daily #Hypertension Continue metoprolol succinate 50 mg p.o. daily with hold parameters #Weight loss/poor p.o. intake History of recent weight loss and poor p.o. intake, decreased total protein. -Consult dietitian -Daily BMP -Replete electrolytes as indicated FENa: Regular Code Status: Full DVT PPX: SCDs PT/OT: Ordered Dispo: Yissel Gallo MD PGY 2, FCM This chart was completed utilizing [employer] voice recognition software. Grammatical errors, random word insertions, pronoun errors, and in complete sentences are an occasional consequence of the system. Any questions or concerns about the content, text, or information contained within the body of this dictation should be addressed directly to the physician for clarification. (2) Acute UTI: (3) Dementia: (4) Hypothyroidism (acquired): (5) Hypertension: Admission and Anticipated Discharge Date Admission Date: March 15, 2021 Supervising Physician Co-Signing Physician Notes I personally examined the patient and verified all oliveira points of history and exam, discussed case, and agree with decision making with Dr Gallo Feeling fine. No complaints. No dysuria, no urinary symptoms. Eating okay. vitals noted nad heent nc at mmm breathing unlabored no accessory muscles good effort skin no rashes no pallor or icterus neuro no focal deficits syncope - ?dehydration vs fatigue from hypothyroid - either way improved. dementia/weakness - appears to have been bordering on SNF for much of the last year; quite reasonable that dtr feels she should have some form of placement. Center care as goal for dispositionappears this will be viable later in the week hypothyroidism - exceedingly likely high TSH is from poor adherence, which likely relates to dementia as well. continue synthroid for now, repeat TSH ~4wks. possible that dementia phenotypically appears worse than it is from fairly significant hypothyroidism - to follow her progress in this regard Asymptomatic bacteriuriano need to treat, very common finding in postmenopausal women, should she develop symptoms, could utilize urine culture to at least guide initial therapy, but I highly doubt this will come to clinical relevance dvt proph - heparin sq otherwise as above Subjective Patient sitting up in bed this morning in no acute distress reported sleeping well overnight. Patient is pleasantly demented, less oriented today than she was previously. Patient reports tolerating her diet, voiding, stooling, sleeping well. Acute concerns related to placement all questions answered. Physical Exam Physical Exam: General: Lying in bed no acute distress HEENT: Normocephalic atraumatic Neck: Normal to visual inspection, trachea midline Cardiac: Regular rate and rhythm I did not appreciate significant murmurs rubs or gallops, normal S1, normal S2, negative pedal edema, negative calf tenderness Respiratory: Clear to auscultation bilaterally with symmetrical chest expansion I did not appreciate significant wheezes, rales, rhonchi GI: Soft, nontender, nondistended, bowel sounds present all 4 quadrants MSK: Moves all extremities Skin: Some bruising near the IV site Neuro: Alert and oriented to person only today Psych: Calm and cooperative with interview Results & Data Results & Data ([facility]) Vital Signs (Past 12 Hours) Vital Signs Temp Pulse Resp BP Pulse Ox 03/16/21 07:01 36.4 C L 47 L 15 160/76 H 96 03/15/21 22:36 36.7 C 57 L 16 162/88 H 99 Laboratory Results 03/16/21 03/16/21 Range/Units 05:52 05:52 WBC 5.71 (4.8-10.8) K/uL RBC 3.07 L (4.2-5.4) M/uL Hgb 10.2 L (12.0-16.0) g/dL Hct 29.8 L (37-47) % MCV 97.1 (80-100) fL MCH 33.2 (25-34) pg MCHC 34.2 (32-36) g/dL RDW Std Deviation 48.2 H (36.4-46.3) fL RDW Coeff of Addison 13.6 (11.5-14.5) % Plt Count 127 L (130-400) K/uL MPV 10.7 H (7.4-10.4) fL Immature Gran % (Auto) 0.2 % Neut % (Auto) 40.8 % Lymph % (Auto) 39.1 % [place] % (Auto) 8.1 % Eos % (Auto) 11.4 % Baso % (Auto) 0.4 % Neut # (Auto) 2.34 (1.4-6.5) K/uL Lymph # (Auto) 2.23 (1.2-3.4) K/uL [place] # (Auto) 0.46 (0.11-0.59) K/uL Eos # (Auto) 0.65 H (0-0.5) K/uL Baso # (Auto) 0.02 (0-0.2) K/uL Immature Gran # (Auto) 0.01 (0.00-0.02) K/uL Sodium 141 (136-145) mmol/L Potassium 3.6 (3.5-5.1) mmol/L Chloride 111 H (98-107) mmol/L Carbon Dioxide 26 (21-32) mmol/L Anion Gap 4.0 (3-11) BUN 16 (7-18) mg/dl Creatinine 1.25 H (0.6-1.2) mg/dl Est Cr Clr Drug Dosing 38.9 ml/min Est GFR ( Amer) 48.1 Est GFR (Non-Af Amer) 41.5 BUN/Creatinine Ratio 12.5 (10-20) Glucose 79 (70-99) mg/dl Calcium 7.7 L (8.5-10.1) mg/dl Total Bilirubin 0.4 (0.2-1) mg/dl AST 14 L (15-37) U/L ALT 9 L (12-78) U/L Alkaline Phosphatase 122 H (45-117) U/L Total Protein 5.5 L (6.4-8.2) gm/dl Albumin 2.1 L (3.4-5.0) gm/dl Globulin 3.4 (2.5-4.0) gm/dl Albumin/Globulin Ratio 0.6 L (0.9-2) Medications Administered Current Inpatient Medications Acetaminophen (Acetaminophen 325 Mg Tab) 650 mg PO Q4H PRN PRN Reason: pain/fever Stop: 04/14/21 02:35 Heparin Sodium (Porcine) (Heparin Sod 5,000 Unit/0.5 Ml Vial) 5,000 units SQ Q12 [facility] Stop: 04/14/21 08:59 Last Admin: 03/15/21 20:18 Dose: 5,000 units Documented by: Levothyroxine Sodium (Levothyroxine Sodium 125 Mcg Tablet) 125 mcg PO DAILYBB [facility] Stop: 04/14/21 06:29 Last Admin: 03/16/21 06:07 Dose: 125 mcg Documented by: Metoprolol Succinate (Metoprolol Succ 50mg Ext Rel Tab) 50 mg PO DAILY [facility] Stop: 04/14/21 08:59 Last Admin: 03/15/21 08:36 Dose: 50 mg Documented by: Resident Activity Tracking Resident Involvement: Resident Care Provided Care Provided: Adult Hospital Medicine (1) Syncope Syncope type: unspecified Qualified Code(s): R55 - Syncope and collapse
[2021-03-16] MEDS: HEPARIN SOD 5,000 UNIT/0.5 ML VIAL SQ SCH ×2 (08:48→19:33)
[2021-03-16] MEDS: METOPROLOL SUCC 50MG EXT REL TAB PO SCH (08:48)
--- NOTE | 2021-03-16 19:20 | Billing Data ---
Date of Service March 16, 2021 Coding Level of Care Code 83307 Subseq Hosp Care Lvl 1
[2021-03-17] MEDS: LEVOTHYROXINE SODIUM 125 MCG TABLET PO SCH (05:33)
[2021-03-17 06:32] LABS: Basophils # (auto) 0.02 K/uL (0-0.2); Basophils % (auto) 0.3 %; Eosinophils # (auto) 0.63 K/uL (0-0.5); Hematocrit (blood only) 30.1 % (37-47); Hemoglobin 10.3 g/dL (12.0-16.0); Immature Granulocytes # (auto) 0.01 K/uL (0.00-0.02); Immature Granulocytes % (auto) 0.2 %; Lymphocytes % (auto) 38.5 %; Mean Corpuscular Hemoglobin 33.2 pg (25-34); Mean Corpuscular Hgb Conc 34.2 g/dL (32-36); Mean Corpuscular Volume 97.1 fL (80-100); Mean Platelet Volume 11.7 fL (7.4-10.4); Monocytes # (auto) 0.54 K/uL (0.11-0.59); Monocytes % (auto) 9.4 %; Neutrophils # (auto) 2.32 K/uL (1.4-6.5); Neutrophils % (auto) 40.6 %; Platelet Count 146 K/uL (130-400); RDW Coefficient of Variation 13.7 % (11.5-14.5); RDW Standard Deviation 48.4 fL (36.4-46.3); White Blood Count 5.72 K/uL (4.8-10.8)
[2021-03-17 07:04] LABS: Albumin Level 2.3 gm/dl (3.4-5.0); BUN Creatinine Ratio 15.1 (10-20); Calcium 8.1 mg/dl (8.5-10.1); Creatinine Clr Calc Pharmacy 40.5 ml/min; Est GFR (African American) 50.5; Est GFR (Non-African American) 43.6; Potassium 3.3 mmol/L (3.5-5.1)
[2021-03-17 07:07] LABS: Albumin Globulin Ratio 0.7 (0.9-2); Bilirubin,Total 0.4 mg/dl (0.2-1); Globulin 3.3 gm/dl (2.5-4.0); Total Protein 5.6 gm/dl (6.4-8.2)
[2021-03-17] MEDS: METOPROLOL SUCC 50MG EXT REL TAB PO SCH (09:29)
[2021-03-17] MEDS: HEPARIN SOD 5,000 UNIT/0.5 ML VIAL SQ SCH ×2 (09:29→20:43)
--- NOTE | 2021-03-17 10:11 | Hospitalist Progress Note ---
Date of Service March 17, 2021 Assessment & Plan (1) Syncope: 75-year-old female with past medical history of dementia, hypertension, hypothyroidism, weight loss presents for evaluation status post syncopal episode diagnosed with acute UTI. #Syncope As noted per patient history. Significantly elevated TSH of 73.80, questions with the patient is actually taking her thyroid supplementation, which will need to be addressed. -Monitor for reoccurrence #Asyx Bacteriuria Denies suprapubic pain, urinary frequency, afvss, no other concerning signs or features. Follow urine culture and sensitivity. #Dementia Oriented to person place. Her dementia is well-known to her primary care tushari rudy who is monitoring the prognosis. Not on any overt treatment this time. 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 Her dementia has been extensively worked up in the past by neurology, and attempts were made to use multiple medications to slow her improve her dementia without benefit. Her dementia appears to be pretty severe as she "simply stopped paying her pro[place] r[place] taxes previously and was therefore forced to move out of her home ". in the past she has self discontinued medications, currently she lives with her daughter who provides 24-hour care. -Dementia precautions - precautions -PT OT Case management consulted #Hypothyroidism Long history of hypothyroidism, per record review TSH of 89 in April 12, 2019, TSH of 41.2 February 27, 2020, on presentation TSH 73.8, free T4 0.95. Has a history of self discontinuing medications, suspect medication non-compliance. -Continue outpatient regimen of levothyroxine 125 mcg p.o. daily #Hypertension Continue metoprolol succinate 50 mg p.o. daily with hold parameters #Weight loss/poor p.o. intake History of recent weight loss and poor p.o. intake, decreased total protein. -Consult dietitian -Daily BMP -Replete electrolytes as indicated -repleted KCl 20 m/eq q2h x 3 FENa: Regular Code Status: Full DVT PPX: SCDs, heparin PT/OT: Ordered Dispo: MedSurg pending placement Shakeel Gallo MD PGY 2, FCM This chart was completed utilizing [employer] voice recognition software. Grammatical errors, random word insertions, pronoun errors, and in complete sentences are an occasional consequence of the system. Any questions or concerns about the content, text, or information contained within the body of this dictation should be addressed directly to the physician for clarification. Admission and Anticipated Discharge Date Admission Date: March 15, 2021 Supervising Physician Co-Signing Physician Notes I personally examined the patient and verified all oliveira points of history and exam, discussed case, and agree with decision making with Dr Gallo watching TV no complaints vitals noted nad heent nc at mmm breathing unlabored no accessory muscles good effort skin no rashes no pallor or icterus neuro no focal deficits syncope - ?dehydration vs fatigue from hypothyroid - either way improved. dementia/weakness - appears to have been bordering on SNF for much of the last year; quite reasonable that dtr feels she should have some form of placement/rehab emphasis. for centre care tomorrow. hypothyroidism - exceedingly likely high TSH is from poor adherence, which likely relates to dementia as well. continue synthroid for now, repeat TSH ~4wks. possible that dementia phenotypically appears worse than it is from fairly significant hypothyroidism - to follow her progress in this regard Asymptomatic bacteriuriano need to treat, very common finding in postmenopausal women, should she develop symptoms, could utilize urine culture to at least guide initial therapy, but I highly doubt this will come to clinical relevance dvt proph - heparin sq otherwise as above Subjective Patient lying in bed this morning in no acute distress. Patient oriented to person only, patient reports tolerating diet, voiding, stooling, no acute distress. Patient has a bed at [facility] this Sunday, pending insurance authorization. All questions answered, acute concerns related to placement. Physical Exam Physical Exam: General: Lying in bed no acute distress HEENT: Normocephalic atraumatic Neck: Normal to visual inspection, trachea midline Cardiac: Regular rate and rhythm I did not appreciate significant murmurs rubs or gallops, normal S1, normal S2, negative pedal edema, negative calf tenderness Respiratory: Clear to auscultation bilaterally with symmetrical chest expansion I did not appreciate significant wheezes, rales, rhonchi GI: Soft, nontender, nondistended, bowel sounds present all 4 quadrants MSK: Moves all extremities Skin: Some bruising near the IV site Neuro: Alert and oriented to person only today Psych: Calm and cooperative with interview Results & Data Results & Data ([facility]) Vital Signs (Past 12 Hours) Vital Signs Temp Pulse Pulse Resp BP Pulse Ox 03/17/21 08:02 36.4 C L 58 L 16 153/85 H 97 03/16/21 22:57 36.8 C 58 L 16 165/85 H 97 Laboratory Results 03/17/21 03/17/21 Range/Units 05:49 05:49 WBC 5.72 (4.8-10.8) K/uL RBC 3.10 L (4.2-5.4) M/uL Hgb 10.3 L (12.0-16.0) g/dL Hct 30.1 L (37-47) % MCV 97.1 (80-100) fL MCH 33.2 (25-34) pg MCHC 34.2 (32-36) g/dL RDW Std Deviation 48.4 H (36.4-46.3) fL RDW Coeff of Addison 13.7 (11.5-14.5) % Plt Count 146 (130-400) K/uL MPV 11.7 H (7.4-10.4) fL Immature Gran % (Auto) 0.2 % Neut % (Auto) 40.6 % Lymph % (Auto) 38.5 % [place] % (Auto) 9.4 % Eos % (Auto) 11.0 % Baso % (Auto) 0.3 % Neut # (Auto) 2.32 (1.4-6.5) K/uL Lymph # (Auto) 2.20 (1.2-3.4) K/uL [place] # (Auto) 0.54 (0.11-0.59) K/uL Eos # (Auto) 0.63 H (0-0.5) K/uL Baso # (Auto) 0.02 (0-0.2) K/uL Immature Gran # (Auto) 0.01 (0.00-0.02) K/uL Sodium 138 (136-145) mmol/L Potassium 3.3 L (3.5-5.1) mmol/L Chloride 108 H (98-107) mmol/L Carbon Dioxide 26 (21-32) mmol/L Anion Gap 4.0 (3-11) BUN 18 (7-18) mg/dl Creatinine 1.20 (0.6-1.2) mg/dl Est Cr Clr Drug Dosing 40.5 ml/min Est GFR ( Amer) 50.5 Est GFR (Non-Af Amer) 43.6 BUN/Creatinine Ratio 15.1 (10-20) Glucose 77 (70-99) mg/dl Calcium 8.1 L (8.5-10.1) mg/dl Total Bilirubin 0.4 (0.2-1) mg/dl AST 16 (15-37) U/L ALT 9 L (12-78) U/L Alkaline Phosphatase 118 H (45-117) U/L Total Protein 5.6 L (6.4-8.2) gm/dl Albumin 2.3 L (3.4-5.0) gm/dl Globulin 3.3 (2.5-4.0) gm/dl Albumin/Globulin Ratio 0.7 L (0.9-2) Medications Administered Current Inpatient Medications Acetaminophen (Acetaminophen 325 Mg Tab) 650 mg PO Q4H PRN PRN Reason: pain/fever Stop: 04/14/21 02:35 Heparin Sodium (Porcine) (Heparin Sod 5,000 Unit/0.5 Ml Vial) 5,000 units SQ Q12 [facility] Stop: 04/14/21 08:59 Last Admin: 03/17/21 09:29 Dose: 5,000 units Documented by: Levothyroxine Sodium (Levothyroxine Sodium 125 Mcg Tablet) 125 mcg PO DAILYBB [facility] Stop: 04/14/21 06:29 Last Admin: 03/17/21 05:33 Dose: 125 mcg Documented by: Metoprolol Succinate (Metoprolol Succ 50mg Ext Rel Tab) 50 mg PO DAILY [facility] Stop: 04/14/21 08:59 Last Admin: 03/17/21 09:29 Dose: Not Given Documented by: Potassium Chloride (Potassium Chloride Crtab 20 Meq Tabcr) 20 meq PO Q2H [facility] Stop: 03/17/21 14:01 Resident Activity Tracking Resident Involvement: Resident Care Provided Care Provided: Adult Hospital Medicine (1) Syncope Syncope type: unspecified Qualified Code(s): R55 - Syncope and collapse
[2021-03-17] MEDS: POTASSIUM CHLORIDE CRTAB 20 MEQ TABCR PO SCH ×3 (11:14→15:30)
--- NOTE | 2021-03-17 16:58 | Billing Data ---
Date of Service March 17, 2021 Coding Level of Care Code 96402 Subseq Hosp Care Lvl 1
[2021-03-18] MEDS: LEVOTHYROXINE SODIUM 125 MCG TABLET PO SCH (05:50)
--- NOTE | 2021-03-18 07:06 | Discharge Summary ---
Date of Service March 18, 2021 Admission HPI Per Admitting Provider The patient is a 75-year-old female with a past medical history including dementia, hypertension, hypothyroidism, urinary tract infection, syncope and collapse, orthostatic syncope, cervical radicular pain, weight loss, and history of back surgery. She presents with symptoms as noted above Admission Exam Per Admitting Provider The patient is awake, alert and oriented 3, well developed and well nourished, normocephalic and atraumatic, lying in bed and in no acute distress. HEENT--PERRL, EOMI, mucous membranes and oropharynx dry. Neck--supple. No JVD. No bruits. Thyroid normal, trachea midline, no adenopathy. Heart--normal S1 and S2. No murmurs, rubs or gallops. Lungs--clear bilaterally, no respiratory distress, no accessory muscle use. Abdomen--normal bowel sounds and soft. Nontender. Nondistended. Extremities--no cyanosis or clubbing. No edema. Dermatologic--normal skin turgor, normal color, no abnormal lymph nodes, no rash. Neurologic--cranial nerves II through XII grossly intact. Rheumatologic--normal range of motion. Psychiatric--normal affect. Principal Diagnosis Syncopal episode, advanced dementia, deconditioning and weakness Discharge Exam General: Lying in bed no acute distress HEENT: Normocephalic atraumatic Neck: Normal to visual inspection, trachea midline Cardiac: Regular rate and rhythm I did not appreciate significant murmurs rubs or gallops, normal S1, normal S2, negative pedal edema, negative calf tenderness Respiratory: Clear to auscultation bilaterally with symmetrical chest expansion I did not appreciate significant wheezes, rales, rhonchi GI: Soft, nontender, nondistended, bowel sounds present all 4 quadrants MSK: Moves all extremities Skin: Some bruising near the IV site Neuro: Alert and oriented to person only today Psych: Calm and cooperative with interview Discharge Data Allergies Allergy/AdvReac Type Severity Reaction Status Date / Time camphor Allergy Severe Anaphylaxis Verified 03/14/21 23:16 furosemide Allergy Severe ICHING, Verified 03/14/21 23:16 BODY PAIN potassium Allergy Intermediate BLACKS OUT Verified 03/14/21 23:16 resveratrol Allergy Intermediate PASSES OUT Verified 03/14/21 23:16 Sulfa (Sulfonamide Allergy Intermediate Hives Verified 03/14/21 23:16 Antibiotics) celecoxib Allergy Unknown CAN'T Verified 03/14/21 23:16 REMEMBER rofecoxib Allergy Unknown CAN'T Verified 03/14/21 23:16 REMEMBER venlafaxine Allergy Unknown CAN'T Verified 03/14/21 23:16 REMEMBER ibuprofen [From Advil] AdvReac Unknown CAN'T Verified 03/14/21 23:16 REMEMBER RESVINATROL COMPLETE Allergy Severe Swelling Uncoded 03/14/21 23:16 throat/tongue.Difficulty breathing.Spacing of words Consultations 03/14/21 23:50 ED Decision to Admit Stat Hospital Course (1) Syncope: 75-year-old female with past medical history of dementia, hypertension, hypothyroidism, weight loss presents for evaluation status post syncopal episode diagnosed with acute UTI. #Syncope As noted per patient history. Significantly elevated TSH of 73.80, question if the patient is actually taking her thyroid supplementation, which will need to be addressed, by outpatient PCP. Has not had any syncopal episodes while hospitalized. -Monitor for reoccurrence #Asyx Bacteriuria Denies suprapubic pain, urinary frequency, afvss, no other concerning signs or features. #Dementia Oriented to person place. Her dementia is well-known to her primary care provider who is monitoring the prognosis. Not on any overt treatment this time. 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 Her dementia has been extensively worked up in the past by neurology, and attempts were made to use multiple medications to slow her improve her dementia without benefit. Her dementia appears to be pretty severe as she "simply stopped paying her property taxes previously and was therefore forced to move out of her home ". in the past she has self discontinued medications, currently she lives with her daughter who provides 24-hour care. Patient to be discharged to [facility]. -Dementia precautions - precautions #Hypothyroidism Long history of hypothyroidism, per record review TSH of 89 in April 12, 2019, TSH of 41.2 February 27, 2020, on presentation TSH 73.8, free T4 0.95. Has a history of self discontinuing medications, suspect medication non-compliance. -Continue outpatient regimen of levothyroxine 125 mcg p.o. daily -Follow-up with outpatient physician to discuss thyroid medication #Hypertension Continue metoprolol succinate 50 mg p.o. daily with hold parameters. Has been persistently hypertensive while hospitalized, will defer blood pressure management to outpatient physician #Weight loss/poor p.o. intake History of recent weight loss and poor p.o. intake, decreased total protein. -Consult dietitian -Daily BMP -Repleted electrolytes as indicated Shakeel Gallo MD PGY 2, FCM This chart was completed utilizing [employer] voice recognition software. Grammatical errors, random word insertions, pronoun errors, and in complete sentences are an occasional consequence of the system. Any questions or concerns about the content, text, or information contained within the body of this dictation should be addressed directly to the physician for clarification. Total Time Total Time Spent Total Time Spent (In Minutes): <30 Discharge Plan Discharge Items Patient Disposition: Transfer Custodial Fac Reason For Visit: UTI, CONFUSION, DEMENTIA Discharge Diagnosis: Syncopal episode, advanced dementia, deconditioning and weakness Activity: Resume your previous activity Non-emergency contact: Primary Care Provider Call non-emergency contact if: you have any medication questions, your pain is worsening and your temperature is above 101.5 Follow-up/Referrals: Jose Angel Montes De Oca III, MD [Primary Care Provider] - Diet: Regular Addtl Attending Provider Instructions: 75-year-old female with past medical history of dementia, hypertension, hypothyroidism, weight loss presents for evaluation status post syncopal episode diagnosed with acute UTI. #Syncope As noted per patient history. Significantly elevated TSH of 73.80, question if the patient is actually taking her thyroid supplementation, which will need to be addressed, by outpatient PCP. Has not had any syncopal episodes while hospitalized. -Monitor for reoccurrence #Asyx Bacteriuria Denies suprapubic pain, urinary frequency, afvss, no other concerning signs or features. #Dementia Oriented to person place. Her dementia is well-known to her primary care provider who is monitoring the prognosis. Not on any overt treatment this time. 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 Her dementia has been extensively worked up in the past by neurology, and attempts were made to use multiple medications to slow her improve her dementia without benefit. Her dementia appears to be pretty severe as she "simply stopped paying her property taxes previously and was therefore forced to move out of her home ". in the past she has self discontinued medications, currently she lives with her daughter who provides 24-hour care. [facility] be [facility] to [facility]. -Dementia precautions -Sundowning precautions #Hypothyroidism Long history of hypothyroidism, per record review TSH of 89 in April 12, 2019, TSH of 41.2 February 27, 2020, on presentation TSH 73.8, free T4 0.95. Has a history of self discontinuing medications, suspect medication non-compliance. -Continue outpatient regimen of levothyroxine 125 mcg p.o. daily -Follow-up with outpatient physician to discuss thyroid medication #Hypertension Continue metoprolol succinate 50 mg p.o. daily with hold parameters. Has been persistently hypertensive while hospitalized, will defer blood pressure management to outpatient physician #Weight loss/poor p.o. intake History of recent weight loss and poor p.o. intake, decreased total protein. -Consult dietitian -Daily BMP -Repleted electrolytes as indicated Shakeel Gallo MD PGY 2, FCM This chart was completed utilizing [employer] voice recognition software. Grammatical errors, random word insertions, pronoun errors, and in complete sentences are an occasional consequence of the system. Any questions or concerns about the content, text, or information contained within the body of this dictation should be addressed directly to the physician for clarification. Pending Studies at Discharge: No Stand-Alone Forms: My [employer] Skilled Items Patient informed of condition?: Yes DNR: No Discharge Level of Care: Skilled Communicable Disease: No Discharge Prognosis: Stable Lines: None Urinary Catheter: No Medications and DC Order Prescriptions: Continued levothyroxine 125 mcg tablet 125 mcg PO DAILY Qty: 90 RF: 3 metoprolol succinate 50 mg tablet extended release 24 hr 50 mg PO DAILY Qty: 90 RF: 3 acetaminophen [Tylenol Extra Strength] 500 mg Tablet 500 mg PO Q6H PRN (Reason: Pain) RF: 0 Discharge Orders: Discharge Order (Routine); Ordered 03/18/21 Ordered By: Shakeel Tabor/Other Patient Handouts: Preventing Deep Vein Thrombosis Admission Data Admit Date/Time: 03/15/21 01:20 Attending Provider: Phillip Evans Admit Provider: Lalito Nickerson Primary Care Provider: Jose Angel Montes De Oca III Other Providers: Lalito Nickerson ; [place] Other Interventions: Discharge Summary Assessment (RN) Last Done: 03/18/21 10:14 Supervising Physician Co-Signing Physician Notes I personally examined the patient and verified all oliveira points of history and exam, discussed case, and agree with decision making with Dr Gallo no complaints vitals noted nad heent nc at mmm breathing unlabored no accessory muscles good effort skin no rashes no pallor or icterus neuro no focal deficits syncope - ?dehydration vs fatigue from hypothyroid - either way improved. dementia/weakness - appears to have been bordering on SNF for much of the last year; quite reasonable that dtr feels she should have some form of placement/rehab emphasis. for centre care today hypothyroidism - exceedingly likely high TSH is from poor adherence, which likely relates to dementia as well. continue synthroid for now, repeat TSH ~4wks. possible that dementia phenotypically appears worse than it is from fairly significant hypothyroidism - to follow her progress in this regard Asymptomatic bacteriuriano need to treat, very common finding in postmenopausal women, should she develop symptoms, could utilize urine culture to at least guide initial therapy, but I highly doubt this will come to clinical relevance dvt proph - heparin sq otherwise as above, stable for SNF Resident Activity Tracking Resident Involvement: Resident Care Provided Care Provided: Adult Hospital Medicine
[2021-03-18] MEDS: HEPARIN SOD 5,000 UNIT/0.5 ML VIAL SQ SCH (08:11)
[2021-03-18] MEDS: METOPROLOL SUCC 50MG EXT REL TAB PO SCH (08:11)
--- NOTE | 2021-03-18 16:39 | Billing Data ---
Date of Service March 18, 2021 Coding Level of Care Code D/C Day Management <30 mins
== END 2021-03-18 13:00 | DRG 690 ==
LOC: ED 21:53 → SUATTDRO 03-15 01:20 → 3E 03-15 01:20